=== PATIENT | female | born 1950 | race Caucasian/White ===

== ENCOUNTER 2019-10-16 12:59 | Emergency (ER) | payer SELFPAY ==
[2019-10-16] MEDS ORDERED: ULTRAM50 MG PO (18:10)
== END 2019-10-16 13:25 | disposition left against medical advice (07) ==
LOC: FSED 12:59
DX: M79.604 Pain in right leg (principal)

== ENCOUNTER 2019-10-16 14:12 | Emergency (ER) | payer OTHER ==
[~2019-10-16] VITALS: Ht 170.2 cm; Wt 86.2 kg
--- NOTE | 2019-10-16 16:13 | Emergency Department Note ---
History of Present Illnes History of Present Illness Chief Complaint: General Medicine Complaints History of Present Illness This is a 68 year old female arrived to the ED with complaints of right hip pain after mechanical fall just prior to arrival.. Chief Complaint Comment STATES SHE HAD MECHANICAL TRIP AND FALL OVER A STAND AT A [employer] THIS PAST SAT FELL DIRECTLY ON RIGHT HIP DENIES HITTING HEAD DENIES LOC STATES SHE HAD RIGHT HIP REPLACEMENT ABOUT 15 YR AGO UNABLE TO WALK SINCE SAT NORMALLY WALKS WITHOUT ASSISTANCE Historian: Patient Arrival Mode: Car Onset (how long ago): hour(s) Radiation: Reports non-radiation Severity: moderate Onset quality: sudden Duration (how long): hour(s) Timing of current episode: constant Progression: unchanged Context: Reports trauma/injury Relieving factors: none, immobilization Exacerbating factors: movement Associated symptoms: Reports denies other symptoms Treatments prior to arrival: none Past Medical/Family History Physician Review I have reviewed the patient's past medical and family history. Any updates have been documented here. Past Medical History Recent Fever: No Clinical Suspicion of Infectio: No New/Unexplained Change in Ment: No Past Medical History: Hypertension, Diabetes, A-Fib, Hyperlipedemia Other Medical History: DEMENTIA RESTLESS LEG SYNDROME KIDNEY INFECTION INSOMNIA Past Surgical History: Appendectomy, , Hip Replacement Other Surgery: TRIPLE BYPASS LEFT LEG SURGERY RIGHT ARM SURGERY Social History Smoking Cessation: Former smoker Alcohol Use: None Any Illegal Drug Use: No TB Exposure/Symptoms: No Physically hurt or threatened: No Other Last Tetanus: UTD Any Pre-Existing Lines (PICC,: No Is patient up to date on immun: Yes Last Flu: UTD Last Pneumovax: UTD Review of Systems Review of Systems Constitutional: Reports no symptoms EENTM: Reports no symptoms Cardiovascular: Reports no symptoms Respiratory: Reports no symptoms Gastrointestinal: Reports no symptoms Genitourinary: Reports no symptoms Musculoskeletal: Reports as per HPI, Reports back pain, Reports joint pain Integumentary: Reports no symptoms Neurological: Reports no symptoms Psychological: Reports no symptoms Endocrine: Reports no symptoms Hematological/Lymphatic: Reports no symptoms Physical Exam Related Data Allergies: Uncoded Allergies: NOVACAINE (Allergy, Unknown, 10/16/19) Triage Vital Signs Vital Signs Date Time Temp Pulse Resp B/P (MAP) Pulse Ox O2 Delivery O2 Flow Rate FiO2 10/16/19 14:24 99.0 75 18 138/71 96 Vital signs reviewed: Yes Physical Exam CONSTITUTIONAL Constitutional: Present well-developed, Present well-nourished HENT HENT: Present normocephalic, Present atraumatic, Present oropharynx clear/moist, Present nose normal HENT L/R: Present left ext ear normal, Present right ext ear normal EYES Eyes: Reports PERRL, Reports conjunctivae normal NECK Neck: Present ROM normal PULMONARY Pulmonary: Present effort normal, Present breath sounds normal CARDIOVASCULAR Cardiovascular: Present regular rhythm, Present heart sounds normal, Present capillary refill normal, Present normal rate GASTROINTESTINAL Abdominal: Present soft, Present nontender, Present bowel sounds normal GENITOURINARY Genitourinary: Present exam deferred SKIN Skin: Present warm, Present dry MUSCULOSKELETAL Musculoskeletal: Present tenderness (tenderness and hematoma noted over right hip) NEUROLOGICAL Neurological: Present alert, Present oriented x 3, Present no gross motor or sensory deficits PSYCHOLOGICAL Psychological: Present mood/affect normal, Present judgement normal Results Imaging Imaging results reviewed: Yes Impressions IMPRESSION: No acute radiographic abnormality identified within the pelvis or right hip. Post surgical changes from right hip arthroplasty. Degenerative changes as above. Signed by: Dr. Jaiden Ramirez MD on 10/16/2019 5:00 PM IMPRESSION: 1. Markedly limited exam due to beam hardening artifact from right hip prosthesis. 2. No acute, displaced fracture or dislocation, within the limitations of the study. Visualized portions of the heart were are intact, without evidence of loosening or failure. The proximal portion of the prosthesis is well aligned in the acetabulum. 3. 5.4 cm ill-defined hypodense structure involving the lateral aspect of the gluteus medius muscle may represent an evolving hematoma or contusion. There is associated subcutaneous soft tissue stranding, also likely posttraumatic. Signed by: Dr. Ton Villalobos M.D. on 10/16/2019 5:05 PM Dictated By: TON VILLALOBOS MD 04 Transcribed By: SUSAN on 10/16/191704 Assessment & Plan Medical Decision Making MDM 68-year-old female arrived to the ED with right hip pain after mechanical fall. Contusion noted on exam, patient individually with pain. Patient's hip and CT findings reviewed showed no acute fracture, prosthesis in place. Patient her vascular intact stable for discharge. Assessment & Plan Final Impression: (1) Hip pain Depart Disposition: HOME, SELF-CARE Last Vital Signs Date Time Temp Pulse Resp B/P (MAP) Pulse Ox O2 Delivery O2 Flow Rate FiO2 10/16/19 14:24 99.0 75 18 138/71 96 Home Meds Active Scripts Tramadol Hcl (ULTRAM) 50 Mg Tablet, 50 MG PO Q6HR PRN for Mild Pain (1-3) or Fever>100.8, #14 TAB Prov:OTONIEL SEARS DO 10/16/19 OTONIEL SEARS DO Oct 16, 2019 16:13
--- NOTE | 2019-10-16 17:04 | Diagnostic Imaging Report ---
EXAM: HIP RIGHT 2-3 VW (+/- PELVIS) DATE: 10/16/2019 3:31 PM INDICATION: Fall, pain COMPARISON: None FINDINGS: There are postsurgical changes from prior total right hip arthroplasty. Hardware appears intact and in anatomic alignment. There is no evidence for acute fracture or dislocation. Degenerative changes noted of the lumbosacral spine. There are degenerative changes of the left hip with moderate joint space narrowing. Calcifications noted within the pelvis which may represent calcified fibroids. Vascular calcifications noted within the right thigh. The surrounding soft tissues are otherwise unremarkable. IMPRESSION: No acute radiographic abnormality identified within the pelvis or right hip. Post surgical changes from right hip arthroplasty. Degenerative changes as above. Signed by: Dr. Jaiden Ramirez MD on 10/16/2019 5:00 PM
--- NOTE | 2019-10-16 17:08 | Diagnostic Imaging Report ---
EXAMINATION: CT of right hip, without contrast. TECHNIQUE: Axial spiral CT images of the right hip were performed from the iliac crest to the mid femur. No intravenous contrast was administered. Coronal and sagittal reformatted images in bone and soft tissue windows were obtained. CLINICAL HISTORY: Status post fall 2 days ago, right hip pain for 2 days COMPARISON: None. FINDINGS: Evaluation of the bones is markedly limited by beam hardening artifact from right hip prosthesis. Status post right total hip replacement, with right hip prosthesis showing satisfactory alignment in the acetabulum. Visualized hardware shows no evidence of loosening or failure. No definite acute, displaced fracture or dislocation within the limitations of the study. Deformity of the right superior pubic ramus likely reflects healed fracture. Atherosclerotic calcification of the iliac vessels. Gluteal region injection calcified granulomas. Ill-defined 5.4 x 4.0 cm hypodense structure involving the lateral aspect of the gluteus medius muscle (series 3, image 8), may represent an evolving hematoma or contusion. Subcutaneous soft tissue stranding lateral to the right iliac bone (series 3, image 4). IMPRESSION: 1. Markedly limited exam due to beam hardening artifact from right hip prosthesis. 2. No acute, displaced fracture or dislocation, within the limitations of the study. Visualized portions of the heart were are intact, without evidence of loosening or failure. The proximal portion of the prosthesis is well aligned in the acetabulum. 3. 5.4 cm ill-defined hypodense structure involving the lateral aspect of the gluteus medius muscle may represent an evolving hematoma or contusion. There is associated subcutaneous soft tissue stranding, also likely posttraumatic. Signed by: Dr. Marcos Elaine M.D. on 10/16/2019 5:05 PM
[2019-10-16] MEDS ORDERED: ULTRAM50 MG PO (18:10)
[2019-10-16 18:30] VITALS: BP 183/87
[2019-10-16] MEDS ORDERED: NAPROXEN 250 MG TAB PO ONE (18:30)
[2019-10-16] MEDS ORDERED: NAPROXEN 250 MG TAB ONE (18:37)
== END 2019-10-16 18:33 | disposition home or self-care (01) ==
LOC: ER 14:12
DX: M25.551 Pain in right hip (principal); W01.0XXA Fall on same level from slipping, tripping and stumbling without subsequent striking against object, initial encounter; Y92.511 Restaurant or cafe as the place of occurrence of the external cause; F03.90 Unspecified dementia, unspecified severity, without behavioral disturbance, psychotic disturbance, mood disturbance, and anxiety; I10 Essential (primary) hypertension; E11.9 Type 2 diabetes mellitus without complications; E78.5 Hyperlipidemia, unspecified; I48.91 Unspecified atrial fibrillation; Z95.1 Presence of aortocoronary bypass graft; Z96.641 Presence of right artificial hip joint
CPT/HCPCS: 99283

== ENCOUNTER 2020-02-13 18:00 | Inpatient (IN) | payer MEDICARE, OTHER ==
[~2020-02-13] VITALS: Ht 170.2 cm; Wt 94.4 kg
[~2020-02-13 18:00] MED LIST: ULTRAM50 MG PO
[2020-02-13] MEDS ORDERED: PIPERACILLIN/TAZO 4.5 GM 100 ML IV STA (19:41)
[2020-02-13] MEDS ORDERED: MORPHINE SULFATE INJ 4 MG/ML INJ 1ML IV PRN (19:45)
[2020-02-13] MEDS ORDERED: ACETAMINOPHEN 325 MG TAB PO ONE (19:45)
[2020-02-13] MEDS ORDERED: ONDANSETRON HCL INJ 2MG/ML 2ML 2 MG/ML VIAL IV PRN (19:45)
[2020-02-13 20:22] LABS: BASOPHILS # (AUTO) 0.1 (0.0-0.1); BASOPHILS % 0.3 % (0.0-1.0); HEMATOCRIT 37.1 % (34.2-44.1); HEMOGLOBIN 12.4 g/dL (12.0-16.0); LYMPHOCYTES # (AUTO) 2.6 (1.0-3.2); LYMPHOCYTES % 12.3 % (18.0-39.1); MEAN CORPUSCULAR HEMOGLOBIN 31.2 pg (28-32); MEAN CORPUSCULAR HGB CONC 33.4 g/dL (31-35); MEAN CORPUSCULAR VOLUME 93.5 fL (81-99); MONOCYTES # (AUTO) 1.5 (0.2-0.8); MONOCYTES % 7.1 % (4.4-11.3); NEUTROPHILS # (AUTO) 16.7 (2.1-6.9); NEUTROPHILS % 78.9 % (38.7-80.0); PLATELET COUNT 335 x10e3/uL (140-360); RED BLOOD COUNT 3.97 x10e6/uL (3.6-5.1); RED CELL DISTRIBUTION WIDTH 14.4 % (11.7-14.4)
[2020-02-13 20:43] LABS: ALBUMIN 4.1 g/dL (3.5-5.0); ANION GAP 22.7 mmol/L (8-16); CALCIUM 11.2 mg/dL (8.4-10.2); CREATININE, SERUM 4.17 mg/dL (0.57-1.11); POTASSIUM 3.7 mmol/L (3.5-5.1)
[2020-02-13] MEDS: SODIUM CHLORIDE 0.9% 1000ML 1,000 ML IV SCH (20:44)
[2020-02-13] MEDS ORDERED: SODIUM CHLORIDE 0.9% 1000ML 1,000 ML IV SCH (20:45)
[2020-02-13] MEDS ORDERED: SODIUM CHLORIDE 0.9% 50ML 50 ML ONE (22:08)
[2020-02-13] MEDS ORDERED: IOPAMIDOL 370 MG/ML 200 ML INFUS..BTL INJ ONE (22:09)
[2020-02-13 23:16] LABS: BILIRUBIN,URINE NEGATIVE (NEGATIVE); CLARITY,URINE CLEAR (CLEAR); COLOR,URINE YELLOW (YELLOW); KETONES,URINE NEGATIVE (NEGATIVE); LEUKOCYTE ESTERASE ,URINE NEGATIVE (NEGATIVE); NITRITE,URINE NEGATIVE (NEGATIVE); PROTEIN,URINE DIPSTICK >=300 (NEGATIVE); URINE UROBILINOGEN 0.2 mg/dL (0.2 - 1)
[2020-02-13 23:27] LABS: BACTERIA,URINE FEW /HPF; EPITHELIAL CELLS,URINE FEW /LPF; RBC,URINE 0-5 /HPF (0-5); WBC,URINE (MAN) 0-5 /HPF (0-5)
[2020-02-13] MEDS ORDERED: SODIUM CHLORIDE 0.9% 500ML 500 ML IV STA (23:47)
[2020-02-14] VITALS (8 sets, daily range): BP systolic 128–181; BP diastolic 55–66
[2020-02-14] MEDS: PIPER-TAZ 3.375 GM 50 ML IV SCH ×2 (00:10→09:54)
[2020-02-14] MEDS ORDERED: MORPHINE SULFATE INJ 4 MG/ML INJ 1ML IV PRN (02:45)
[2020-02-14] MEDS: SODIUM CHLORIDE 0.9% 1000ML 1,000 ML IV SCH (05:10)
[2020-02-14] MEDS ORDERED: POLYETHYLENE GLYCOL 3350 17 GM PACK PO PRN ×2 (08:30→19:45)
[2020-02-14] MEDS ORDERED: ACETAMINOPHEN 325 MG TAB PO PRN (08:30)
[2020-02-14] MEDS ORDERED: DEXTROSE 50% SYRINGE 50 ML IV PRN ×2 (08:30→19:45)
[2020-02-14] MEDS ORDERED: DOCUSATE SODIUM 100 MG CAP PO PRN (08:30)
[2020-02-14] MEDS ORDERED: HYDRALAZINE HCL 20 MG/ML VIAL IV PRN (08:30)
[2020-02-14] MEDS ORDERED: GUAIFENESIN/CODEINE 10 ML CUP PO PRN (08:30)
[2020-02-14] MEDS ORDERED: BENZONATATE 100 MG CAP PO PRN (08:30)
[2020-02-14] MEDS ORDERED: MELATONIN 5 MG TABLET PO PRN (08:30)
[2020-02-14] MEDS ORDERED: NIFEDIPINE CR 30 MG TAB PO SCH (09:00)
[2020-02-14] MEDS ORDERED: VANCOMYCIN 1GM/NS 250 ML 250 ML IV ONE (09:30)
[2020-02-14 10:57] LABS: BASOPHILS # (AUTO) 0.1 (0.0-0.1); BASOPHILS % 0.3 % (0.0-1.0); EOSINOPHILS # (AUTO) 0.1 (0.0-0.4); EOSINOPHILS % 0.4 % (0.0-6.0); HEMATOCRIT 30.4 % (34.2-44.1); HEMOGLOBIN 9.8 g/dL (12.0-16.0); LYMPHOCYTES # (AUTO) 3.4 (1.0-3.2); LYMPHOCYTES % 16.4 % (18.0-39.1); MEAN CORPUSCULAR HEMOGLOBIN 31.7 pg (28-32); MEAN CORPUSCULAR HGB CONC 32.2 g/dL (31-35); MEAN CORPUSCULAR VOLUME 98.4 fL (81-99); MONOCYTES # (AUTO) 2.2 (0.2-0.8); MONOCYTES % 10.6 % (4.4-11.3); NEUTROPHILS # (AUTO) 14.7 (2.1-6.9); NEUTROPHILS % 71.5 % (38.7-80.0); PLATELET COUNT 304 x10e3/uL (140-360); RED BLOOD COUNT 3.09 x10e6/uL (3.6-5.1); RED CELL DISTRIBUTION WIDTH 14.6 % (11.7-14.4)
[2020-02-14 11:18] LABS: ALBUMIN/GLOBULIN RATIO 1.1 (0.8-2.0); ANION GAP 13.7 mmol/L (8-16); CALCIUM 8.6 mg/dL (8.4-10.2); CREATININE, SERUM 3.8 mg/dL (0.57-1.11); POTASSIUM 3.7 mmol/L (3.5-5.1)
[2020-02-14] MEDS: SEVELAMER CARBONATE 800 MG TAB PO SCH ×2 (12:00→17:46)
[2020-02-14 12:52] LABS: ANISOCYTOSIS SLIGHT; LYMPHOCYTES % (MANUAL) 10 % (19-48); MONOCYTES % (MANUAL) 7 % (3.4-9.0); NEUTROPHILS % (MANUAL) 83 % (40-74); PLATELET ESTIMATE ADEQUATE; RBC MORPHOLOGY COMMENT NORMAL
[2020-02-14 12:53] LABS: PLATELET MORPHOLOGY COMMENT RARE EDTA CLUMPING
[2020-02-14] MEDS ORDERED: GENTAMICIN 120MG/NS 100ML 100 ML IV ONE (15:15)
[2020-02-14] MEDS ORDERED: LACTULOSE SYRUP 20 GM/30 ML UDC PO ONE (15:30)
[2020-02-14] MEDS ORDERED: ASPIRIN81 MG PO (18:30)
[2020-02-14] MEDS ORDERED: PROCARDIA XL30 MG PO (18:30)
[2020-02-14] MEDS ORDERED: CLEOCIN HCL150 MG PO (18:30)
[2020-02-14] MEDS ORDERED: HUMALOG100 UNIT/1 (18:30)
[2020-02-14] MEDS ORDERED: LACTULOSE20 GM/30 M PO (18:30)
[2020-02-14] MEDS ORDERED: LASIX40 MG PO (18:30)
[2020-02-14] MEDS ORDERED: ROZEREM8 MG PO (18:30)
[2020-02-14] MEDS ORDERED: ATORVASTATIN CA10 MG PO (18:30)
[2020-02-14] MEDS ORDERED: LEXAPRO20 MG PO (18:30)
[2020-02-14] MEDS ORDERED: ROPINIROLE HCL1 MG PO (18:30)
[2020-02-14] MEDS ORDERED: MIRALAX17 GM PO (18:30)
[2020-02-14] MEDS ORDERED: ZOFRAN4 MG PO (18:30)
[2020-02-14] MEDS ORDERED: COLACE100 MG PO (18:30)
[2020-02-14] MEDS ORDERED: GUANFACINE HCL2 MG PO (18:30)
[2020-02-14] MEDS ORDERED: LANTUS 3ML100 UNITS/ SC (18:30)
[2020-02-14] MEDS ORDERED: NAMENDA5 MG PO (18:30)
[2020-02-14] MEDS ORDERED: HYDRALAZINE HCL25 MG PO (18:30)
[2020-02-14] MEDS ORDERED: ROBAXIN-750750 MG PO (18:30)
[2020-02-14] MEDS ORDERED: AMIODARONE HCL200 MG PO (18:30)
[2020-02-14] MEDS ORDERED: LACTULOSE SYRUP 20 GM/30 ML UDC PO PRN (19:45)
[2020-02-14] MEDS ORDERED: ONDANSETRON HCL 4 MG ORAL DISINTEGRATING TAB PO PRN (19:45)
[2020-02-14] MEDS ORDERED: METHOCARBAMOL 750 MG TAB PO PRN (19:45)
[2020-02-14] MEDS ORDERED: ZOLPIDEM TARTRATE 5 MG TAB PO PRN (19:45)
[2020-02-14] MEDS: GUANFACINE HCL 1 MG TAB PO SCH (20:00)
[2020-02-14] MEDS: HYDRALAZINE HCL 25 MG TAB PO SCH (22:00)
[2020-02-14] MEDS: ATORVASTATIN 10 MG TAB PO SCH (23:07)
[2020-02-14] MEDS: MEMANTINE 10 MG TAB PO SCH (23:08)
[2020-02-14] MEDS: ROPINIROLE HCL 1 MG TAB PO SCH (23:08)
[2020-02-14] MEDS: INSULIN LISPRO 100 UNIT/1 ML 3ML VIAL SQ SCH (23:21)
[2020-02-14] MEDS: INSULIN GLARGINE 100 UNITS/ML VIAL SC SCH (23:21)
[2020-02-15] VITALS (11 sets, daily range): BP systolic 107–198; BP diastolic 40–68
[2020-02-15] MEDS: ONDANSETRON HCL INJ 2MG/ML 2ML 2 MG/ML VIAL IV PRN ×3 (03:07→20:23)
[2020-02-15] MEDS: MORPHINE SULFATE 2 MG/ML SYR 1ML IV PRN ×2 (03:46→11:30)
[2020-02-15] MEDS: HYDRALAZINE HCL 25 MG TAB PO SCH ×3 (05:40→21:56)
[2020-02-15] MEDS: HYDROCODONE/APAP 5MG-325MG TAB PO PRN ×3 (05:46→20:23)
[2020-02-15 06:29] LABS: BASOPHILS # (AUTO) 0.1 (0.0-0.1); BASOPHILS % 0.6 % (0.0-1.0); EOSINOPHILS # (AUTO) 0.3 (0.0-0.4); EOSINOPHILS % 1.7 % (0.0-6.0); HEMATOCRIT 32.1 % (34.2-44.1); HEMOGLOBIN 10.5 g/dL (12.0-16.0); LYMPHOCYTES # (AUTO) 2.6 (1.0-3.2); LYMPHOCYTES % 13.6 % (18.0-39.1); MEAN CORPUSCULAR HEMOGLOBIN 31.9 pg (28-32); MEAN CORPUSCULAR HGB CONC 32.7 g/dL (31-35); MEAN CORPUSCULAR VOLUME 97.6 fL (81-99); MONOCYTES # (AUTO) 1.4 (0.2-0.8); MONOCYTES % 7.2 % (4.4-11.3); NEUTROPHILS # (AUTO) 14.5 (2.1-6.9); NEUTROPHILS % 76.2 % (38.7-80.0); PLATELET COUNT 311 x10e3/uL (140-360); RED BLOOD COUNT 3.29 x10e6/uL (3.6-5.1); RED CELL DISTRIBUTION WIDTH 14.3 % (11.7-14.4)
[2020-02-15 07:05] LABS: ALBUMIN 3.2 g/dL (3.5-5.0); ALBUMIN/GLOBULIN RATIO 1.1 (0.8-2.0); ANION GAP 18.2 mmol/L (8-16); CALCIUM 8.5 mg/dL (8.4-10.2); CREATININE, SERUM 3.73 mg/dL (0.57-1.11); POTASSIUM 3.2 mmol/L (3.5-5.1)
[2020-02-15 07:21] LABS: MAGNESIUM 1.9 MG/DL (1.3-2.1); PHOSPHORUS 3.1 MG/DL (2.3-4.7)
[2020-02-15] MEDS: INSULIN LISPRO 100 UNIT/1 ML 3ML VIAL SQ SCH ×4 (07:30→22:02)
[2020-02-15] MEDS: SEVELAMER CARBONATE 800 MG TAB PO SCH ×3 (08:00→17:38)
[2020-02-15] MEDS: GUANFACINE HCL 1 MG TAB PO SCH (08:00)
[2020-02-15 08:05] LABS: FERRITIN 666.77 ng/mL (4.63-204.00)
[2020-02-15] MEDS: AMIODARONE HCL 200 MG TAB PO SCH (08:25)
[2020-02-15] MEDS: PANTOPRAZOLE SOD 40 MG TABEC PO SCH (08:25)
[2020-02-15] MEDS: ESCITALOPRAM OXALATE 10 MG TAB PO SCH (08:26)
[2020-02-15] MEDS: MEMANTINE 10 MG TAB PO SCH ×2 (08:26→21:55)
[2020-02-15] MEDS: NIFEDIPINE CR 30 MG TAB PO SCH (08:27)
[2020-02-15] MEDS ORDERED: FUROSEMIDE 40 MG TAB PO SCH (09:00)
[2020-02-15] MEDS ORDERED: LIDOCAINE HCL 1% LOCAL INJ 20 ML VIAL ONE (09:05)
[2020-02-15] MEDS: ASPIRIN 81 MG CHEW TAB PO SCH (11:25)
[2020-02-15] MEDS: PIPER-TAZ 3.375 GM 50 ML IV SCH (11:25)
[2020-02-15] MEDS: DOCUSATE SODIUM 100 MG CAP PO SCH (11:25)
[2020-02-15] MEDS: HEPARIN SOD (PORCINE) 5,000 UNIT/ML VIAL SC SCH ×2 (11:25→22:01)
[2020-02-15] MEDS ORDERED: POTASSIUM CHLORIDE 10MEQ EA PO ONE (12:00)
[2020-02-15] MEDS: CLONIDINE HCL 0.1 MG TAB PO SCH ×2 (12:06→16:20)
[2020-02-15] MEDS ORDERED: ENALAPRILAT IV INJ 1.25 MG/ML VIAL IV PRN (13:15)
[2020-02-15] MEDS ORDERED: CEFEPIME HCL 1 GM VIAL IV SCH (17:45)
[2020-02-15] MEDS: CEFEPIME 1GM/NS 0.9% 50 ML 50 ML IV SCH (17:58)
[2020-02-15] MEDS: METRONIDAZOLE 500MG/NS 100ML 100 ML IV SCH (19:44)
[2020-02-15] MEDS: ATORVASTATIN 10 MG TAB PO SCH (21:55)
[2020-02-15] MEDS: ROPINIROLE HCL 1 MG TAB PO SCH (21:56)
[2020-02-15] MEDS: INSULIN GLARGINE 100 UNITS/ML VIAL SC SCH (22:01)
[2020-02-16] VITALS (12 sets, daily range): BP systolic 100–210; BP diastolic 43–63
[2020-02-16] MEDS: METRONIDAZOLE 500MG/NS 100ML 100 ML IV SCH ×3 (04:54→21:12)
[2020-02-16] MEDS: HYDRALAZINE HCL 25 MG TAB PO SCH ×3 (06:25→21:19)
[2020-02-16 06:32] LABS: BASOPHILS # (AUTO) 0.1 (0.0-0.1); BASOPHILS % 0.7 % (0.0-1.0); EOSINOPHILS # (AUTO) 0.6 (0.0-0.4); EOSINOPHILS % 4.4 % (0.0-6.0); HEMATOCRIT 28.8 % (34.2-44.1); HEMOGLOBIN 9.2 g/dL (12.0-16.0); LYMPHOCYTES # (AUTO) 3.2 (1.0-3.2); LYMPHOCYTES % 25.6 % (18.0-39.1); MEAN CORPUSCULAR HEMOGLOBIN 32.3 pg (28-32); MEAN CORPUSCULAR HGB CONC 31.9 g/dL (31-35); MEAN CORPUSCULAR VOLUME 101.1 fL (81-99); MONOCYTES # (AUTO) 1.5 (0.2-0.8); MONOCYTES % 12.1 % (4.4-11.3); NEUTROPHILS # (AUTO) 7.1 (2.1-6.9); NEUTROPHILS % 56.6 % (38.7-80.0); PLATELET COUNT 274 x10e3/uL (140-360); RED BLOOD COUNT 2.85 x10e6/uL (3.6-5.1); RED CELL DISTRIBUTION WIDTH 14.5 % (11.7-14.4)
[2020-02-16 06:51] LABS: ALBUMIN 2.8 g/dL (3.5-5.0); ALBUMIN/GLOBULIN RATIO 1.1 (0.8-2.0); ANION GAP 12.5 mmol/L (8-16); CALCIUM 8.5 mg/dL (8.4-10.2); CREATININE, SERUM 4.84 mg/dL (0.57-1.11); POTASSIUM 3.5 mmol/L (3.5-5.1)
[2020-02-16] MEDS: PANTOPRAZOLE SOD 40 MG TABEC PO SCH (08:30)
[2020-02-16] MEDS: INSULIN LISPRO 100 UNIT/1 ML 3ML VIAL SQ SCH ×4 (08:30→21:17)
[2020-02-16] MEDS: SEVELAMER CARBONATE 800 MG TAB PO SCH ×4 (08:50→17:00)
[2020-02-16] MEDS: MEMANTINE 10 MG TAB PO SCH ×2 (08:50→21:12)
[2020-02-16] MEDS: AMIODARONE HCL 200 MG TAB PO SCH (08:50)
[2020-02-16] MEDS: ASPIRIN 81 MG CHEW TAB PO SCH (08:50)
[2020-02-16] MEDS: DOCUSATE SODIUM 100 MG CAP PO SCH (08:50)
[2020-02-16] MEDS: ESCITALOPRAM OXALATE 10 MG TAB PO SCH (08:50)
[2020-02-16] MEDS: CLONIDINE HCL 0.1 MG TAB PO SCH (08:51)
[2020-02-16] MEDS: HEPARIN SOD (PORCINE) 5,000 UNIT/ML VIAL SC SCH ×2 (09:00→21:16)
[2020-02-16] MEDS: HYDROCODONE/APAP 5MG-325MG TAB PO PRN ×2 (09:19→22:32)
[2020-02-16] MEDS: NIFEDIPINE CR 30 MG TAB PO SCH ×2 (10:00→16:47)
[2020-02-16] MEDS ORDERED: CLONIDINE HCL 0.1 MG TAB PO PRN (10:45)
[2020-02-16] MEDS ORDERED: MIDAZOLAM HCL 2 MG/2 ML VIAL ONE (12:41)
[2020-02-16] MEDS ORDERED: KETAMINE HCL INJ 50 MG/ML 10 ML VIAL ONE (12:41)
[2020-02-16] MEDS: ONDANSETRON HCL INJ 2MG/ML 2ML 2 MG/ML VIAL IV PRN (12:50)
[2020-02-16] MEDS: MORPHINE SULFATE INJ 4 MG/ML INJ 1ML IV PRN (12:50)
[2020-02-16] MEDS ORDERED: ENALAPRILAT IV INJ 1.25 MG/ML VIAL IV PRN ×2 (15:00→15:45)
[2020-02-16] MEDS: CEFEPIME 1GM/NS 0.9% 50 ML 50 ML IV SCH (18:15)
[2020-02-16] MEDS: ROPINIROLE HCL 1 MG TAB PO SCH (21:12)
[2020-02-16] MEDS: ATORVASTATIN 10 MG TAB PO SCH (21:12)
[2020-02-16] MEDS: INSULIN GLARGINE 100 UNITS/ML VIAL SC SCH (21:16)
[2020-02-17] VITALS (8 sets, daily range): BP systolic 149–172; BP diastolic 47–64
[2020-02-17] MEDS: METRONIDAZOLE 500MG/NS 100ML 100 ML IV SCH ×3 (04:17→20:00)
[2020-02-17 04:31] LABS: BASOPHILS # (AUTO) 0.1 (0.0-0.1); BASOPHILS % 0.6 % (0.0-1.0); EOSINOPHILS # (AUTO) 0.4 (0.0-0.4); EOSINOPHILS % 2.8 % (0.0-6.0); HEMATOCRIT 30.3 % (34.2-44.1); HEMOGLOBIN 9.8 g/dL (12.0-16.0); LYMPHOCYTES # (AUTO) 2.9 (1.0-3.2); LYMPHOCYTES % 22.5 % (18.0-39.1); MEAN CORPUSCULAR HEMOGLOBIN 31.2 pg (28-32); MEAN CORPUSCULAR HGB CONC 32.3 g/dL (31-35); MEAN CORPUSCULAR VOLUME 96.5 fL (81-99); MONOCYTES # (AUTO) 1.3 (0.2-0.8); MONOCYTES % 10.5 % (4.4-11.3); PLATELET COUNT 273 x10e3/uL (140-360); RED BLOOD COUNT 3.14 x10e6/uL (3.6-5.1); RED CELL DISTRIBUTION WIDTH 13.9 % (11.7-14.4)
[2020-02-17 04:48] LABS: ALBUMIN 2.8 g/dL (3.5-5.0); ANION GAP 14.4 mmol/L (8-16); CREATININE, SERUM 4.61 mg/dL (0.57-1.11); POTASSIUM 3.4 mmol/L (3.5-5.1)
[2020-02-17] MEDS: HYDRALAZINE HCL 25 MG TAB PO SCH ×3 (05:05→20:44)
[2020-02-17] MEDS: INSULIN LISPRO 100 UNIT/1 ML 3ML VIAL SQ SCH ×4 (07:30→20:31)
[2020-02-17] MEDS: PANTOPRAZOLE SOD 40 MG TABEC PO SCH (07:30)
[2020-02-17] MEDS: SEVELAMER CARBONATE 800 MG TAB PO SCH ×3 (08:00→17:39)
[2020-02-17] MEDS: HEPARIN SOD (PORCINE) 5,000 UNIT/ML VIAL SC SCH ×2 (12:10→20:35)
[2020-02-17] MEDS: NIFEDIPINE CR 30 MG TAB PO SCH ×2 (12:10→17:39)
[2020-02-17] MEDS: ASPIRIN 81 MG CHEW TAB PO SCH (12:43)
[2020-02-17] MEDS: DOCUSATE SODIUM 100 MG CAP PO SCH (12:43)
[2020-02-17] MEDS: AMIODARONE HCL 200 MG TAB PO SCH (12:43)
[2020-02-17] MEDS: MEMANTINE 10 MG TAB PO SCH ×2 (12:43→20:34)
[2020-02-17] MEDS: ESCITALOPRAM OXALATE 10 MG TAB PO SCH (12:43)
[2020-02-17] MEDS ORDERED: METHOCARBAMOL 500 MG TAB PO PRN (13:45)
[2020-02-17] MEDS ORDERED: POTASSIUM CHLORIDE 20 MEQ TAB CR PO ONE (14:38)
[2020-02-17 16:38] LABS: BODY FLUID APPEARANCE CLEAR; BODY FLUID COLOR COLORLESS; BODY FLUID TYPE PERITONEAL; WBC,BODY FLUID 0 cells/uL
[2020-02-17 16:39] LABS: RBC,BODY FLUID 11 cells/uL
[2020-02-17 18:09] LABS: LYMPHOCYTES,BODY FLUID 0 %; MONO/MACROPHG,BODY FLUID 0 %; NEUTROPHILS,BODY FLUID 0 %
[2020-02-17] MEDS: CEFEPIME 1GM/NS 0.9% 50 ML 50 ML IV SCH (18:12)
[2020-02-17] MEDS: INSULIN GLARGINE 100 UNITS/ML VIAL SQ SCH (20:32)
[2020-02-17] MEDS: ATORVASTATIN 10 MG TAB PO SCH (20:34)
[2020-02-17] MEDS: ROPINIROLE HCL 1 MG TAB PO SCH (20:44)
[2020-02-18] VITALS (8 sets, daily range): BP systolic 129–169; BP diastolic 51–79
[2020-02-18] MEDS: ONDANSETRON HCL INJ 2MG/ML 2ML 2 MG/ML VIAL IV PRN (00:55)
[2020-02-18] MEDS: METRONIDAZOLE 500MG/NS 100ML 100 ML IV SCH ×3 (03:34→20:18)
[2020-02-18] MEDS: MORPHINE SULFATE INJ 4 MG/ML INJ 1ML IV PRN ×2 (04:45→22:10)
[2020-02-18] MEDS: HYDRALAZINE HCL 25 MG TAB PO SCH ×3 (06:00→22:00)
[2020-02-18] MEDS: PANTOPRAZOLE SOD 40 MG TABEC PO SCH (08:40)
[2020-02-18] MEDS: SEVELAMER CARBONATE 800 MG TAB PO SCH ×3 (08:41→17:30)
[2020-02-18] MEDS: AMIODARONE HCL 200 MG TAB PO SCH (08:42)
[2020-02-18] MEDS: DOCUSATE SODIUM 100 MG CAP PO SCH (08:42)
[2020-02-18] MEDS: ASPIRIN 81 MG CHEW TAB PO SCH (08:42)
[2020-02-18] MEDS: ESCITALOPRAM OXALATE 10 MG TAB PO SCH (08:52)
[2020-02-18] MEDS: MEMANTINE 10 MG TAB PO SCH ×2 (08:52→22:00)
[2020-02-18] MEDS: NIFEDIPINE CR 30 MG TAB PO SCH ×2 (08:55→17:30)
[2020-02-18] MEDS: INSULIN LISPRO 100 UNIT/1 ML 3ML VIAL SQ SCH ×4 (09:34→22:00)
[2020-02-18] MEDS: HEPARIN SOD (PORCINE) 5,000 UNIT/ML VIAL SC SCH ×2 (09:34→22:00)
[2020-02-18] MEDS: CEFEPIME 1GM/NS 0.9% 50 ML 50 ML IV SCH (17:30)
[2020-02-18] MEDS ORDERED: METOCLOPRAMIDE HCL 10 MG/2ML VIAL IV ONE (21:15)
[2020-02-18] MEDS ORDERED: DONNATAL/LIDOCAINE/MAALOX 30 ML SUSP PO ONE (21:15)
[2020-02-18] MEDS: ATORVASTATIN 10 MG TAB PO SCH (22:00)
[2020-02-18] MEDS: ROPINIROLE HCL 1 MG TAB PO SCH (22:00)
[2020-02-18] MEDS: PANTOPRAZOLE 40 MG 10ML VIAL IV SCH (22:00)
[2020-02-18] MEDS: INSULIN GLARGINE 100 UNITS/ML VIAL SQ SCH (22:00)
[2020-02-18] MEDS ORDERED: MAGNESIUM HYDROXIDE 30 ML UDC PO ONE (22:30)
[2020-02-19] VITALS (8 sets, daily range): BP systolic 125–158; BP diastolic 47–63
[2020-02-19] MEDS: METRONIDAZOLE 500MG/NS 100ML 100 ML IV SCH ×3 (04:09→20:45)
[2020-02-19 05:41] LABS: BASOPHILS # (AUTO) 0.1 (0.0-0.1); BASOPHILS % 0.7 % (0.0-1.0); EOSINOPHILS # (AUTO) 0.4 (0.0-0.4); EOSINOPHILS % 3.5 % (0.0-6.0); HEMATOCRIT 32.8 % (34.2-44.1); HEMOGLOBIN 10.8 g/dL (12.0-16.0); LYMPHOCYTES # (AUTO) 3.2 (1.0-3.2); MEAN CORPUSCULAR HEMOGLOBIN 31.8 pg (28-32); MEAN CORPUSCULAR HGB CONC 32.9 g/dL (31-35); MEAN CORPUSCULAR VOLUME 96.5 fL (81-99); MONOCYTES # (AUTO) 1.4 (0.2-0.8); MONOCYTES % 12.7 % (4.4-11.3); NEUTROPHILS # (AUTO) 6.2 (2.1-6.9); NEUTROPHILS % 54.4 % (38.7-80.0); PLATELET COUNT 289 x10e3/uL (140-360); RED CELL DISTRIBUTION WIDTH 13.9 % (11.7-14.4)
[2020-02-19] MEDS: HYDRALAZINE HCL 25 MG TAB PO SCH ×3 (05:43→21:20)
[2020-02-19] MEDS: METOCLOPRAMIDE HCL 10 MG/2ML VIAL IV SCH ×4 (05:49→17:16)
[2020-02-19 06:00] LABS: ALBUMIN 2.8 g/dL (3.5-5.0); ALBUMIN/GLOBULIN RATIO 0.9 (0.8-2.0); ANION GAP 13.4 mmol/L (8-16); CREATININE, SERUM 3.76 mg/dL (0.57-1.11); POTASSIUM 3.4 mmol/L (3.5-5.1)
[2020-02-19] MEDS: INSULIN LISPRO 100 UNIT/1 ML 3ML VIAL SQ SCH ×4 (08:05→21:18)
[2020-02-19] MEDS: AMIODARONE HCL 200 MG TAB PO SCH (08:44)
[2020-02-19] MEDS: ESCITALOPRAM OXALATE 10 MG TAB PO SCH (08:44)
[2020-02-19] MEDS: DOCUSATE SODIUM 100 MG CAP PO SCH (08:44)
[2020-02-19] MEDS: SEVELAMER CARBONATE 800 MG TAB PO SCH ×3 (08:44→17:13)
[2020-02-19] MEDS: ASPIRIN 81 MG CHEW TAB PO SCH (08:44)
[2020-02-19] MEDS: NIFEDIPINE CR 30 MG TAB PO SCH ×2 (08:45→17:13)
[2020-02-19] MEDS: PANTOPRAZOLE 40 MG 10ML VIAL IV SCH ×2 (08:45→21:19)
[2020-02-19] MEDS: MEMANTINE 10 MG TAB PO SCH ×2 (08:45→20:45)
[2020-02-19] MEDS: HEPARIN SOD (PORCINE) 5,000 UNIT/ML VIAL SC SCH ×2 (09:45→20:56)
[2020-02-19] MEDS ORDERED: LACTULOSE SYRUP 20 GM/30 ML UDC PO ONE (13:00)
[2020-02-19] MEDS ORDERED: POTASSIUM CHLORIDE 20 MEQ TAB CR PO ONE (13:00)
[2020-02-19] MEDS ORDERED: PROPOFOL IV EMULSION 10 MG/ML 20 ML VIAL ONE (13:02)
[2020-02-19] MEDS ORDERED: LIDOCAINE HCL 2% LOCAL INJ 5 ML SDV VIAL INJ ONE (13:02)
[2020-02-19] MEDS: CEFEPIME 1GM/NS 0.9% 50 ML 50 ML IV SCH (17:16)
[2020-02-19] MEDS: ATORVASTATIN 10 MG TAB PO SCH (20:45)
[2020-02-19] MEDS: ROPINIROLE HCL 1 MG TAB PO SCH (20:46)
[2020-02-19] MEDS: INSULIN GLARGINE 100 UNITS/ML VIAL SQ SCH (21:19)
[2020-02-20] VITALS: BP 153/43
[2020-02-20] MEDS: METOCLOPRAMIDE HCL 10 MG/2ML VIAL IV SCH ×3 (00:11→12:09)
[2020-02-20] MEDS: METRONIDAZOLE 500MG/NS 100ML 100 ML IV SCH ×2 (04:29→12:10)
[2020-02-20] MEDS: HYDRALAZINE HCL 25 MG TAB PO SCH (05:22)
[2020-02-20] MEDS: INSULIN LISPRO 100 UNIT/1 ML 3ML VIAL SQ SCH ×2 (08:27→11:46)
[2020-02-20] MEDS: AMIODARONE HCL 200 MG TAB PO SCH (08:27)
[2020-02-20] MEDS: NIFEDIPINE CR 30 MG TAB PO SCH (08:27)
[2020-02-20] MEDS: ASPIRIN 81 MG CHEW TAB PO SCH (08:27)
[2020-02-20] MEDS: ESCITALOPRAM OXALATE 10 MG TAB PO SCH (08:27)
[2020-02-20] MEDS: SEVELAMER CARBONATE 800 MG TAB PO SCH ×2 (08:27→12:09)
[2020-02-20] MEDS: DOCUSATE SODIUM 100 MG CAP PO SCH (08:27)
[2020-02-20] MEDS: MEMANTINE 10 MG TAB PO SCH (08:27)
[2020-02-20 08:32] VITALS: BP 184/62
[2020-02-20 08:47] VITALS: BP 184/62
[2020-02-20] MEDS: PANTOPRAZOLE 40 MG 10ML VIAL IV SCH (09:20)
[2020-02-20] MEDS: HEPARIN SOD (PORCINE) 5,000 UNIT/ML VIAL SC SCH (09:20)
[2020-02-20 11:41] VITALS: BP 164/73
[2020-02-20] MEDS ORDERED: NIFEDIPINE ER30 M1 PO (15:39)
[2020-02-20] MEDS ORDERED: PANTOPRAZOLE SO40 MG PO (15:40)
[2020-02-20 15:59] VITALS: BP 163/69
== END 2020-02-20 16:34 | disposition home or self-care (01) | DRG 919 ==
LOC: ER 20:15 → ERHOLD 02-14 02:30 → MED/SURG3 02-14 04:15 → OBSVTOIN 02-16 07:55
PROVIDERS: ADMIT Internal Medicine; ATTEND Internal Medicine
PROC: 3E1M39Z Irrigation of Peritoneal Cavity using Dialysate, Percutaneous Approach (ICD-10-PCS; 2020-02-14)
PROC: 02H633Z Insertion of Infusion Device into Right Atrium, Percutaneous Approach (ICD-10-PCS; 2020-02-15)
PROC: B548ZZA Ultrasonography of Superior Vena Cava, Guidance (ICD-10-PCS; 2020-02-15)
PROC: 3E1M39Z Irrigation of Peritoneal Cavity using Dialysate, Percutaneous Approach (ICD-10-PCS; 2020-02-15)
PROC: 3E1M39Z Irrigation of Peritoneal Cavity using Dialysate, Percutaneous Approach (ICD-10-PCS; 2020-02-16)
PROC: 3E1M39Z Irrigation of Peritoneal Cavity using Dialysate, Percutaneous Approach (ICD-10-PCS; 2020-02-17)
PROC: 0DB68ZX Excision of Stomach, Via Natural or Artificial Opening Endoscopic, Diagnostic (ICD-10-PCS; principal; 2020-02-17 11:00)
PROC: 3E1M39Z Irrigation of Peritoneal Cavity using Dialysate, Percutaneous Approach (ICD-10-PCS; 2020-02-18)
PROC: 3E1M39Z Irrigation of Peritoneal Cavity using Dialysate, Percutaneous Approach (ICD-10-PCS; 2020-02-19)
DX: T85.71XA Infection and inflammatory reaction due to peritoneal dialysis catheter, initial encounter (principal); A41.9 Sepsis, unspecified organism; N18.6 End stage renal disease; K65.9 Peritonitis, unspecified; I12.0 Hypertensive chronic kidney disease with stage 5 chronic kidney disease or end stage renal disease; K22.10 Ulcer of esophagus without bleeding; N17.9 Acute kidney failure, unspecified; N39.0 Urinary tract infection, site not specified; E11.22 Type 2 diabetes mellitus with diabetic chronic kidney disease; Z99.2 Dependence on renal dialysis; I48.91 Unspecified atrial fibrillation; F03.90 Unspecified dementia, unspecified severity, without behavioral disturbance, psychotic disturbance, mood disturbance, and anxiety; Z95.1 Presence of aortocoronary bypass graft; Z88.5 Allergy status to narcotic agent; K29.70 Gastritis, unspecified, without bleeding; K44.9 Diaphragmatic hernia without obstruction or gangrene; Z86.73 Personal history of transient ischemic attack (TIA), and cerebral infarction without residual deficits; Z96.642 Presence of left artificial hip joint; K80.20 Calculus of gallbladder without cholecystitis without obstruction; E66.9 Obesity, unspecified; Z11.59 Encounter for screening for other viral diseases; Z68.32 Body mass index [BMI] 32.0-32.9, adult; Z20.828 Contact with and (suspected) exposure to other viral communicable diseases; Z79.4 Long term (current) use of insulin; B95.8 Unspecified staphylococcus as the cause of diseases classified elsewhere
CPT/HCPCS: 36415; 36556; 43239; 71045; 74177; 74470; 76705; 76937; 77001; 78227; 80053; 81001; 82607; 82728; 82746; 82948; 83540; 83605; 83690; 83735; 84100; 84466; 85025; 85045; 87040; 87070; 87071; 87075; 87086; 87205; 88305; 88312; 89051; 93005; 96372; 99284; A9537; G0378; J0692; J1580; J1644; J1815; J2001; J2250; J2270; J2405; J2543; J2765; J3370; J7030; J7040; Q0162; Q9967; U0002

== ENCOUNTER → 2020-03-06 | Outpatient (CLI) | payer MEDICARE ==
[~2020-03-06] MED LIST changes: +AMIODARONE HCL200 MG PO; +ASPIRIN81 MG PO; +ATORVASTATIN CA10 MG PO; +CLEOCIN HCL150 MG PO; +COLACE100 MG PO; +GUANFACINE HCL2 MG PO; +HUMALOG100 UNIT/1; +HYDRALAZINE HCL25 MG PO; +LACTULOSE20 GM/30 M PO; +LANTUS 3ML100 UNITS/ SC; +LASIX40 MG PO; +LEXAPRO20 MG PO; +LIDOCAINE HCL 1% LOCAL INJ 20 ML VIAL ONE; +MIRALAX17 GM PO; +NAMENDA5 MG PO; +NIFEDIPINE ER30 M1 PO; +PANTOPRAZOLE SO40 MG PO; +PROCARDIA XL30 MG PO; +ROBAXIN-750750 MG PO; +ROPINIROLE HCL1 MG PO; +ROZEREM8 MG PO; +ZOFRAN4 MG PO
--- NOTE | 2020-03-06 12:06 | Diagnostic Imaging Report ---
EXAMINATION: CHEST SINGLE (PORTABLE) INDICATION: Line removal COMPARISON: Chest radiograph 02/14/2020, line placement 02/15/2020 FINDINGS: LINES/TUBES:Interval removal of nontunneled right IJ central venous catheter. Tunneled right IJ dialysis catheter unchanged. LUNGS:The lungs are well-inflated. No focal consolidation or pulmonary edema. PLEURA:No pleural effusion or pneumothorax. MEDIASTINUM:The cardiomediastinal silhouette appears normal in size and shape. BONES/SOFT TISSUES:No acute osseous injury. ABDOMEN:No free air under the diaphragm. IMPRESSION: Interval removal of nontunneled right IJ central venous catheter. No focal pneumonia or pulmonary edema. Signed by: Omar Carbajal MD on 03/06/2020 12:03 PM
== END ==
LOC: DX 10:41
PROVIDERS: ATTEND Internal Medicine
DX: T80.212A Local infection due to central venous catheter, initial encounter (principal)
CPT/HCPCS: 36589; 71045; J2001

== ENCOUNTER → 2023-07-01 | Outpatient (RCR) | payer MEDICARE ==
[~2023-07-01] MED LIST changes: +AUGMENTIN 500-1 EACH PO; +CARVEDILOL3.125 MG PO; +CILOSTAZOL50 MG PO; +COLLAGENASE OINTMENT 30 GM TUBE ONE; +CYTOMEL25 MCG PO; +ELIQUIS2.5 MG PO; +FISH OIL 1,001000 M1 PO; +FLOMAX0.4 MG PO; +FLUCONAZOLE100 MG PO; +IPRATROPIU0.2 MG/1 M INH; -LIDOCAINE HCL 1% LOCAL INJ 20 ML VIAL ONE; +LIDOCAINE VISC 2% SOLN 15 ML UDC ONE; +MINERAL OIL/PETROLAT/GLYCERI 6OZ BTL ONE; +NEURONTIN100 MG PO; +PRAMIPEXOLE DIHY1 MG PO; +RENA-VITE TABL0.8 MG PO; +SENOKOT8.6 MG PO; +SEVELAMER CARB800 MG PO; +TOPROL XL25 MG PO; +TRELEGY ELLIPT1 EACH INH; +TYLENOL325 MG PO
== END | disposition still patient (30) ==
LOC: WCC 06-17 14:40
PROVIDERS: ATTEND Internal Medicine Infectious Disease
DX: E11.621 Type 2 diabetes mellitus with foot ulcer (principal); L89.620 Pressure ulcer of left heel, unstageable; L97.423 Non-pressure chronic ulcer of left heel and midfoot with necrosis of muscle; R60.0 Localized edema
CPT/HCPCS: 83036

== ENCOUNTER 2023-08-05 14:10 | Outpatient (RCR) | payer MEDICARE ==
[~2023-08-05 14:10] MED LIST changes: -AUGMENTIN 500-1 EACH PO; -CARVEDILOL3.125 MG PO; -CILOSTAZOL50 MG PO; -COLLAGENASE OINTMENT 30 GM TUBE ONE; -CYTOMEL25 MCG PO; -ELIQUIS2.5 MG PO; -FISH OIL 1,001000 M1 PO; -FLOMAX0.4 MG PO; -FLUCONAZOLE100 MG PO; -IPRATROPIU0.2 MG/1 M INH; -MINERAL OIL/PETROLAT/GLYCERI 6OZ BTL ONE; +MUPIROCIN 2% OINT 22 GM TUBE ONE; -NEURONTIN100 MG PO; -PRAMIPEXOLE DIHY1 MG PO; -RENA-VITE TABL0.8 MG PO; -SENOKOT8.6 MG PO; -SEVELAMER CARB800 MG PO; -TOPROL XL25 MG PO; -TRELEGY ELLIPT1 EACH INH; -TYLENOL325 MG PO
[2023-08-05] MEDS ORDERED: ELIQUIS2.5 MG PO (21:04)
[2023-08-05] MEDS ORDERED: PRAMIPEXOLE DIHY1 MG PO (21:04)
[2023-08-05] MEDS ORDERED: TRELEGY ELLIPT1 EACH INH (21:04)
[2023-08-05] MEDS ORDERED: CILOSTAZOL50 MG PO (21:04)
[2023-08-05] MEDS ORDERED: NEURONTIN100 MG PO (21:04)
[2023-08-05] MEDS ORDERED: IPRATROPIU0.2 MG/1 M INH (21:04)
[2023-08-05] MEDS ORDERED: CYTOMEL25 MCG PO (21:04)
[2023-08-05] MEDS ORDERED: TYLENOL325 MG PO (21:04)
[2023-08-05] MEDS ORDERED: SEVELAMER CARB800 MG PO (21:04)
[2023-08-05] MEDS ORDERED: CARVEDILOL3.125 MG PO (21:04)
[2023-08-05] MEDS ORDERED: AUGMENTIN 500-1 EACH PO (21:04)
[2023-08-05] MEDS ORDERED: FLOMAX0.4 MG PO (21:04)
[2023-08-05] MEDS ORDERED: FISH OIL 1,001000 M1 PO (21:04)
[2023-08-05] MEDS ORDERED: RENA-VITE TABL0.8 MG PO (21:04)
[2023-08-05] MEDS ORDERED: FLUCONAZOLE100 MG PO (21:04)
[2023-08-18] MEDS ORDERED: TOPROL XL25 MG PO (10:56)
[2023-08-18] MEDS ORDERED: SENOKOT8.6 MG PO (10:56)
== END 2023-08-31 ==
LOC: WCC 14:10
PROVIDERS: ATTEND Nurse Practitioner Family
DX: E11.621 Type 2 diabetes mellitus with foot ulcer (principal); L89.523 Pressure ulcer of left ankle, stage 3; L89.620 Pressure ulcer of left heel, unstageable; L97.423 Non-pressure chronic ulcer of left heel and midfoot with necrosis of muscle; R60.0 Localized edema

== ENCOUNTER 2024-02-09 13:41 | Emergency (ER) | payer MEDICARE ==
[~2024-02-09] VITALS: Ht 170.2 cm; Wt 95.3 kg
[~2024-02-09 13:41] MED LIST changes: +AUGMENTIN 500-1 EACH PO; +CARVEDILOL3.125 MG PO; +CILOSTAZOL50 MG PO; +CYTOMEL25 MCG PO; +ELIQUIS2.5 MG PO; +FISH OIL 1,001000 M1 PO; +FLOMAX0.4 MG PO; +FLUCONAZOLE100 MG PO; +IPRATROPIU0.2 MG/1 M INH; -LIDOCAINE VISC 2% SOLN 15 ML UDC ONE; -MUPIROCIN 2% OINT 22 GM TUBE ONE; +NEURONTIN100 MG PO; +PRAMIPEXOLE DIHY1 MG PO; +RENA-VITE TABL0.8 MG PO; +SENOKOT8.6 MG PO; +SEVELAMER CARB800 MG PO; +TOPROL XL25 MG PO; +TRELEGY ELLIPT1 EACH INH; +TYLENOL325 MG PO
[2024-02-09 13:45] VITALS: TEMP 99.2
[2024-02-09] MEDS ORDERED: FLUCONAZOLE200 MG PO (15:00)
[2024-02-09] MEDS ORDERED: DOXYCYCLINE HY100 MG PO (15:01)
[2024-02-09 16:00] VITALS: PULSE 84; RESP 24; O2SAT 99
== END 2024-02-09 16:56 | disposition home or self-care (01) ==
LOC: ER 13:46
DX: B37.2 Candidiasis of skin and nail (principal); I12.0 Hypertensive chronic kidney disease with stage 5 chronic kidney disease or end stage renal disease; N18.6 End stage renal disease; Z99.2 Dependence on renal dialysis; J44.9 Chronic obstructive pulmonary disease, unspecified; I50.9 Heart failure, unspecified; I48.91 Unspecified atrial fibrillation; D64.9 Anemia, unspecified; E78.5 Hyperlipidemia, unspecified; F32.A Depression, unspecified; F03.90 Unspecified dementia, unspecified severity, without behavioral disturbance, psychotic disturbance, mood disturbance, and anxiety; Z95.1 Presence of aortocoronary bypass graft
CPT/HCPCS: 93971; 99284

== ENCOUNTER 2024-03-01 13:17 | Emergency (ER) | payer MEDICARE ==
[~2024-03-01] VITALS: Ht 170.2 cm; Wt 95.3 kg
[~2024-03-01 13:17] MED LIST changes: +DOXYCYCLINE HY100 MG PO; +FLUCONAZOLE200 MG PO; -HUMALOG100 UNIT/1; +HUMALOG100 UNIT/1 SC
[2024-03-01 13:21] VITALS: PULSE 93; RESP 17; TEMP 98.7
[2024-03-01] MEDS ORDERED: CEFDINIR300 MG PO (13:50)
[2024-03-01 14:33] LABS: CLARITY,URINE CLOUDY (CLEAR); COLOR,URINE YELLOW (YELLOW)
[2024-03-01 14:34] LABS: BILIRUBIN,URINE NEGATIVE (NEGATIVE); GLUCOSE, URINE NEGATIVE (NEGATIVE); KETONES,URINE NEGATIVE (NEGATIVE); LEUKOCYTE ESTERASE ,URINE LARGE (NEGATIVE); PH,URINE 6 (5 - 7); PROTEIN,URINE DIPSTICK 1+ (NEGATIVE)
[2024-03-01 14:35] LABS: NITRITE,URINE NEGATIVE (NEGATIVE); URINE UROBILINOGEN 0.2 mg/dL (0.2 - 1)
[2024-03-01 14:46] LABS: WBC,URINE (MAN) >50 /HPF (0-5)
[2024-03-01 14:48] LABS: BACTERIA,URINE MANY /HPF; EPITHELIAL CELLS,URINE FEW /LPF; RBC,URINE 21-50 /HPF (0-5); RENAL EPITHELIAL CELLS,URINE FEW
[2024-03-01 15:18] VITALS: BP 135/77; PULSE 90; RESP 16; O2SAT 100
== END 2024-03-01 15:17 | disposition home or self-care (01) ==
LOC: ER 13:34
DX: Z46.6 Encounter for fitting and adjustment of urinary device (principal); I12.0 Hypertensive chronic kidney disease with stage 5 chronic kidney disease or end stage renal disease; N18.6 End stage renal disease; Z99.2 Dependence on renal dialysis; J44.9 Chronic obstructive pulmonary disease, unspecified; I50.9 Heart failure, unspecified; F03.90 Unspecified dementia, unspecified severity, without behavioral disturbance, psychotic disturbance, mood disturbance, and anxiety; I48.91 Unspecified atrial fibrillation; E78.5 Hyperlipidemia, unspecified; E03.9 Hypothyroidism, unspecified; D64.9 Anemia, unspecified; F32.A Depression, unspecified; Z95.1 Presence of aortocoronary bypass graft; Z89.612 Acquired absence of left leg above knee
CPT/HCPCS: 51700; 81001; 87086; 87186; 99284

== ENCOUNTER 2024-03-07 15:00 | Inpatient (IN) | payer MEDICARE ==
[~2024-03-07] VITALS: Ht 170.2 cm; Wt 95.3 kg
[~2024-03-07 15:00] MED LIST changes: +CEFDINIR300 MG PO
[2024-03-07] MEDS ORDERED: ACETAMINOPHEN 325 MG TAB PO ONE (15:30)
[2024-03-07 15:59] LABS: BASOPHILS % 0.2 % (0.0-1.0); HEMATOCRIT 46.4 % (34.2-44.1); HEMOGLOBIN 13.7 g/dL (12.0-16.0); LYMPHOCYTES # (AUTO) 2.5 (1.0-3.2); LYMPHOCYTES % 12.3 % (18.0-39.1); MEAN CORPUSCULAR HEMOGLOBIN 26.1 pg (28-32); MEAN CORPUSCULAR HGB CONC 29.5 g/dL (31-35); MEAN CORPUSCULAR VOLUME 88.5 fL (81-99); MONOCYTES # (AUTO) 2.3 (0.2-0.8); MONOCYTES % 11.5 % (4.4-11.3); NEUTROPHILS % 75.2 % (38.7-80.0); PLATELET COUNT 247 x10e3/uL (140-360); RED BLOOD COUNT 5.24 x10e6/uL (3.6-5.1); RED CELL DISTRIBUTION WIDTH 15.4 % (11.7-14.4); WHITE BLOOD COUNT 19.92 x10e3/uL (4.8-10.8)
[2024-03-07 16:00] LABS: CLARITY,URINE TURBID (CLEAR); COLOR,URINE RED (YELLOW)
[2024-03-07] MEDS: ACETAMINOPHEN 1000 MG/100 ML IV STA (16:00)
[2024-03-07 16:05] LABS: INR 1.19; PROTHROMBIN TIME 15.7 seconds (11.9-14.5)
[2024-03-07 16:07] LABS: PARTIAL THROMBOPLASTIN TIME 71.2 seconds (23.8-35.5)
[2024-03-07 16:12] LABS: BILIRUBIN,URINE NEGATIVE (NEGATIVE); GLUCOSE, URINE 2+ (NEGATIVE); KETONES,URINE 1+ (NEGATIVE); LEUKOCYTE ESTERASE ,URINE LARGE (NEGATIVE); NITRITE,URINE NEGATIVE (NEGATIVE); PH,URINE 5.5 (5 - 7); PROTEIN,URINE DIPSTICK >=300 (NEGATIVE); URINE UROBILINOGEN 0.2 mg/dL (0.2 - 1)
[2024-03-07 16:13] LABS: ALBUMIN 3.1 g/dL (3.5-5.0); ALBUMIN/GLOBULIN RATIO 0.8 (0.8-2.0); ANION GAP 24.1 mmol/L (8-16); BILIRUBIN,TOTAL 0.5 mg/dL (0.2-1.2); CALCIUM 9.8 mg/dL (8.4-10.2); CREATININE, SERUM 6.43 mg/dL (0.57-1.11); POTASSIUM 4.1 mmol/L (3.5-5.1); TOTAL PROTEIN 6.9 g/dL (6.5-8.1)
[2024-03-07 16:14] LABS: BACTERIA,URINE MANY /HPF; TRANSITIONAL EPI CELLS,URINE RARE
[2024-03-07] MEDS: SODIUM CHLORIDE 0.9% 1000ML 1,000 ML IV ONE (16:36)
[2024-03-07] MEDS: METOPROLOL TARTRATE INJ 1 MG/ML VIAL IV ONE (16:37)
[2024-03-07] MEDS ORDERED: ONDANSETRON HCL INJ 2MG/ML 2ML 2 MG/ML VIAL IV PRN (17:00)
[2024-03-07] MEDS ORDERED: SODIUM CHLORIDE FLUSH 10 ML SYR INJ PRN (17:00)
[2024-03-07 17:21] VITALS: PULSE 103; RESP 18; TEMP 99.1
[2024-03-07 18:35] VITALS: BP 151/81; PULSE 103; RESP 22; TEMP 99.7; O2SAT 100
[2024-03-07] MEDS ORDERED: IOPAMIDOL 370 MG/ML 100 ML INFUS..BTL INJ ONE (19:52)
[2024-03-07 20:00] VITALS: BP 117/81; PULSE 113; RESP 16; TEMP 97.5; O2SAT 100
[2024-03-07] MEDS ORDERED: ACETAMINOPHEN 1000 MG/100 ML IV PRN (20:00)
[2024-03-07 20:15] VITALS: BP 117/81; PULSE 113; RESP 16; TEMP 97.5; O2SAT 100
[2024-03-07] MEDS ORDERED: NITROFURANTOIN100 MG PO (20:39)
[2024-03-07] MEDS ORDERED: RENA-VITE RX T1 EACH PO (20:39)
[2024-03-07] MEDS: MEMANTINE 10 MG TAB PO SCH (21:04)
[2024-03-07] MEDS: INSULIN GLARGINE 100 UNITS/ML VIAL SQ SCH (21:16)
[2024-03-07] MEDS: INSULIN REGULAR, HUMAN 100 UNIT/1 ML SQ SCH (21:16)
[2024-03-07] MEDS ORDERED: METOPROLOL TARTRATE 25 MG TAB PO SCH (22:15)
[2024-03-07] MEDS: SODIUM CHLORIDE 0.9% 100 ML ONE (23:07)
[2024-03-08] VITALS (7 sets, daily range): BP systolic 118–166; BP diastolic 66–87; PULSE 89–102; RESP 16–21; TEMP 98.1–102.4; O2SAT 98–100
[2024-03-08] MEDS: BISACODYL 10 MG SUPP PR ONE ×2 (00:26→09:52)
[2024-03-08 05:45] LABS: BASOPHILS % 0.2 % (0.0-1.0); HEMATOCRIT 34.7 % (34.2-44.1); HEMOGLOBIN 10.3 g/dL (12.0-16.0); LYMPHOCYTES # (AUTO) 2.7 (1.0-3.2); LYMPHOCYTES % 13.7 % (18.0-39.1); MEAN CORPUSCULAR HEMOGLOBIN 26.5 pg (28-32); MEAN CORPUSCULAR HGB CONC 29.7 g/dL (31-35); MEAN CORPUSCULAR VOLUME 89.2 fL (81-99); MONOCYTES # (AUTO) 1.9 (0.2-0.8); MONOCYTES % 9.8 % (4.4-11.3); NEUTROPHILS # (AUTO) 14.9 (2.1-6.9); NEUTROPHILS % 75.8 % (38.7-80.0); PLATELET COUNT 189 x10e3/uL (140-360); RED BLOOD COUNT 3.89 x10e6/uL (3.6-5.1); RED CELL DISTRIBUTION WIDTH 15.6 % (11.7-14.4); WHITE BLOOD COUNT 19.68 x10e3/uL (4.8-10.8)
[2024-03-08 06:07] LABS: ALBUMIN 2.3 g/dL (3.5-5.0); ALBUMIN/GLOBULIN RATIO 0.7 (0.8-2.0); ANION GAP 26.7 mmol/L (8-16); BILIRUBIN,TOTAL 0.5 mg/dL (0.2-1.2); CALCIUM 8.1 mg/dL (8.4-10.2); CREATININE, SERUM 6.46 mg/dL (0.57-1.11); POTASSIUM 3.7 mmol/L (3.5-5.1); TOTAL PROTEIN 5.4 g/dL (6.5-8.1)
[2024-03-08] MEDS: POLYETHYLENE GLYCOL 3350 17 GM PACK PO ONE ×2 (06:17→09:55)
[2024-03-08] MEDS: MINERAL OIL 132 ML BTL PR ONE (06:18)
[2024-03-08] MEDS: LIOTHYRONINE SODIUM 5 MCG TAB PO SCH (06:24)
[2024-03-08] MEDS ORDERED: APIXABAN 2.5 MG TABLET PO SCH (09:00)
[2024-03-08] MEDS: PANTOPRAZOLE SOD 40 MG TABEC PO SCH (09:00)
[2024-03-08] MEDS: METOPROLOL SUCCINATE 25 MG TAB XL PO SCH (09:00)
[2024-03-08] MEDS: INSULIN GLARGINE 100 UNITS/ML VIAL SQ ONE (09:53)
[2024-03-08] MEDS: SODIUM CHLORIDE 0.9% 1000ML 2,000 ML ONE (11:51)
[2024-03-08] MEDS: Vancomycin IV 1 GM in SODIUM CHLORIDE 0.9% 250ML 250 ML IV SCH (13:00)
[2024-03-08] MEDS: HEPARIN SOD (PORCINE) 1000 UNIT/ML SDV ONE (16:13)
[2024-03-08] MEDS: POLYETHYLENE GLYCOL 3350 17 GM PACK PO SCH (17:45)
[2024-03-08] MEDS: ATORVASTATIN 10 MG TAB PO SCH (21:45)
[2024-03-08] MEDS: COLLAGENASE 5 GM TUBE TP SCH (22:07)
[2024-03-08] MEDS: INSULIN GLARGINE 100 UNITS/ML VIAL SQ SCH (22:13)
[2024-03-09] VITALS (8 sets, daily range): BP systolic 130–147; BP diastolic 39–89; PULSE 79–97; RESP 16–21; TEMP 98.2–99; O2SAT 100
[2024-03-09 07:32] LABS: HEPATITIS B CORE AB TOTAL Positive; HEPATITIS B CORE IGM (P) Negative; HEPATITIS B SURFACE AG (P) Negative; HEPATITIS BE ANTIGEN Negative
[2024-03-09 08:37] LABS: BASOPHILS # (AUTO) 0.1 (0.0-0.1); BASOPHILS % 0.4 % (0.0-1.0); EOSINOPHILS # (AUTO) 0.4 (0.0-0.4); EOSINOPHILS % 3.1 % (0.0-6.0); HEMATOCRIT 39.6 % (34.2-44.1); HEMOGLOBIN 11.6 g/dL (12.0-16.0); LYMPHOCYTES # (AUTO) 2.3 (1.0-3.2); LYMPHOCYTES % 17.6 % (18.0-39.1); MEAN CORPUSCULAR HEMOGLOBIN 26.4 pg (28-32); MEAN CORPUSCULAR HGB CONC 29.3 g/dL (31-35); MONOCYTES # (AUTO) 1.3 (0.2-0.8); MONOCYTES % 10.1 % (4.4-11.3); NEUTROPHILS # (AUTO) 8.9 (2.1-6.9); NEUTROPHILS % 68.3 % (38.7-80.0); PLATELET COUNT 184 x10e3/uL (140-360); RED CELL DISTRIBUTION WIDTH 15.3 % (11.7-14.4); WHITE BLOOD COUNT 13.04 x10e3/uL (4.8-10.8)
[2024-03-09] MEDS: APIXABAN 2.5 MG TABLET PO SCH (08:46)
[2024-03-09] MEDS: LEVOFLOXACIN 500MG/D5W 100ML 100 ML IV SCH (08:47)
[2024-03-09 08:58] LABS: ALBUMIN 2.3 g/dL (3.5-5.0); ALBUMIN/GLOBULIN RATIO 0.7 (0.8-2.0); ANION GAP 16.5 mmol/L (8-16); BILIRUBIN,TOTAL 0.5 mg/dL (0.2-1.2); CALCIUM 8.8 mg/dL (8.4-10.2); CREATININE, SERUM 4.62 mg/dL (0.57-1.11); POTASSIUM 3.5 mmol/L (3.5-5.1); TOTAL PROTEIN 5.5 g/dL (6.5-8.1)
[2024-03-09] MEDS ORDERED: COLLAGENASE 5 GM TUBE TP SCH (09:00)
[2024-03-10] VITALS (7 sets, daily range): BP systolic 126–161; BP diastolic 69–89; PULSE 72–96; RESP 17–24; TEMP 97.7–99.6; O2SAT 100
[2024-03-10 05:24] LABS: BASOPHILS % 0.3 % (0.0-1.0); EOSINOPHILS # (AUTO) 0.2 (0.0-0.4); EOSINOPHILS % 2.1 % (0.0-6.0); HEMATOCRIT 39.6 % (34.2-44.1); HEMOGLOBIN 11.5 g/dL (12.0-16.0); LYMPHOCYTES # (AUTO) 2.2 (1.0-3.2); LYMPHOCYTES % 22.2 % (18.0-39.1); MEAN CORPUSCULAR HEMOGLOBIN 26.4 pg (28-32); MEAN CORPUSCULAR VOLUME 90.8 fL (81-99); MONOCYTES % 10.5 % (4.4-11.3); NEUTROPHILS # (AUTO) 6.2 (2.1-6.9); NEUTROPHILS % 64.5 % (38.7-80.0); PLATELET COUNT 141 x10e3/uL (140-360); RED BLOOD COUNT 4.36 x10e6/uL (3.6-5.1); RED CELL DISTRIBUTION WIDTH 15.8 % (11.7-14.4); WHITE BLOOD COUNT 9.68 x10e3/uL (4.8-10.8)
[2024-03-10 05:50] LABS: ALBUMIN 2.1 g/dL (3.5-5.0); ALBUMIN/GLOBULIN RATIO 0.7 (0.8-2.0); ANION GAP 21.2 mmol/L (8-16); BILIRUBIN,TOTAL 0.4 mg/dL (0.2-1.2); CALCIUM 8.7 mg/dL (8.4-10.2); CREATININE, SERUM 5.36 mg/dL (0.57-1.11); POTASSIUM 4.2 mmol/L (3.5-5.1); TOTAL PROTEIN 5.3 g/dL (6.5-8.1)
[2024-03-10] MEDS ORDERED: SODIUM CHLORIDE 0.9% 250ML 500 ML IV PRN (14:15)
[2024-03-10] MEDS ORDERED: HEPARIN SOD (PORCINE) 1000 UNIT/ML SDV IV PRN (14:15)
[2024-03-10] MEDS ORDERED: ALBUMIN 25% 12.5GM 0.25 GM/ML BTL IV PRN (14:15)
[2024-03-10] MEDS: SODIUM CHLORIDE 0.9% 1000ML 1,000 ML ONE (21:48)
[2024-03-10] MEDS: SODIUM CHLORIDE 0.9% 1000ML 2,000 ML ONE (21:48)
[2024-03-11] VITALS (7 sets, daily range): BP systolic 150–166; BP diastolic 65–80; PULSE 72–92; RESP 15–18; TEMP 97.6–98.7; O2SAT 100
[2024-03-11 06:03] LABS: BASOPHILS % 0.4 % (0.0-1.0); EOSINOPHILS # (AUTO) 0.3 (0.0-0.4); EOSINOPHILS % 2.7 % (0.0-6.0); HEMATOCRIT 39.7 % (34.2-44.1); HEMOGLOBIN 11.4 g/dL (12.0-16.0); LYMPHOCYTES # (AUTO) 2.5 (1.0-3.2); LYMPHOCYTES % 25.2 % (18.0-39.1); MEAN CORPUSCULAR HEMOGLOBIN 26.1 pg (28-32); MEAN CORPUSCULAR HGB CONC 28.7 g/dL (31-35); MEAN CORPUSCULAR VOLUME 91.1 fL (81-99); MONOCYTES # (AUTO) 1.1 (0.2-0.8); MONOCYTES % 10.9 % (4.4-11.3); NEUTROPHILS % 60.3 % (38.7-80.0); PLATELET COUNT 219 x10e3/uL (140-360); RED BLOOD COUNT 4.36 x10e6/uL (3.6-5.1); RED CELL DISTRIBUTION WIDTH 15.3 % (11.7-14.4); WHITE BLOOD COUNT 9.86 x10e3/uL (4.8-10.8)
[2024-03-11 06:34] LABS: ALBUMIN 2.1 g/dL (3.5-5.0); ALBUMIN/GLOBULIN RATIO 0.7 (0.8-2.0); ANION GAP 14.4 mmol/L (8-16); BILIRUBIN,TOTAL 0.4 mg/dL (0.2-1.2); CALCIUM 8.6 mg/dL (8.4-10.2); CREATININE, SERUM 3.87 mg/dL (0.57-1.11); TOTAL PROTEIN 5.2 g/dL (6.5-8.1)
[2024-03-11 06:36] LABS: POTASSIUM 3.4 mmol/L (3.5-5.1)
[2024-03-11 15:51] LABS: HEPATITIS BE ANTIBODY Reactive (Negative)
[2024-03-12] VITALS (8 sets, daily range): BP systolic 144–173; BP diastolic 59–96; PULSE 67–90; RESP 17–18; TEMP 97.6–98.5; O2SAT 100
[2024-03-13] VITALS (7 sets, daily range): BP systolic 146–171; BP diastolic 56–83; PULSE 81–85; RESP 17–23; TEMP 98.2–98.6; O2SAT 99–100
[2024-03-13 08:04] LABS: BASOPHILS # (AUTO) 0.1 (0.0-0.1); BASOPHILS % 0.4 % (0.0-1.0); EOSINOPHILS # (AUTO) 0.3 (0.0-0.4); EOSINOPHILS % 2.7 % (0.0-6.0); HEMATOCRIT 40.5 % (34.2-44.1); HEMOGLOBIN 12.1 g/dL (12.0-16.0); LYMPHOCYTES % 17.8 % (18.0-39.1); MEAN CORPUSCULAR HEMOGLOBIN 26.2 pg (28-32); MEAN CORPUSCULAR HGB CONC 29.9 g/dL (31-35); MEAN CORPUSCULAR VOLUME 87.9 fL (81-99); MONOCYTES # (AUTO) 1.1 (0.2-0.8); MONOCYTES % 9.7 % (4.4-11.3); NEUTROPHILS # (AUTO) 7.7 (2.1-6.9); NEUTROPHILS % 68.7 % (38.7-80.0); PLATELET COUNT 249 x10e3/uL (140-360); RED BLOOD COUNT 4.61 x10e6/uL (3.6-5.1); RED CELL DISTRIBUTION WIDTH 15.6 % (11.7-14.4); WHITE BLOOD COUNT 11.23 x10e3/uL (4.8-10.8)
[2024-03-13 08:42] LABS: ALBUMIN 2.3 g/dL (3.5-5.0); ALBUMIN/GLOBULIN RATIO 0.7 (0.8-2.0); ANION GAP 19.4 mmol/L (8-16); BILIRUBIN,TOTAL 0.4 mg/dL (0.2-1.2); CALCIUM 8.9 mg/dL (8.4-10.2); CREATININE, SERUM 5.77 mg/dL (0.57-1.11); POTASSIUM 4.4 mmol/L (3.5-5.1); TOTAL PROTEIN 5.4 g/dL (6.5-8.1)
[2024-03-13] MEDS ORDERED: HEPARIN SOD (PORCINE) 1000 UNIT/ML SDV IV PRN (12:45)
[2024-03-13] MEDS: SODIUM CHLORIDE 0.9% 1000ML 2,000 ML IV PRN (12:47)
[2024-03-13] MEDS: SODIUM CHLORIDE 0.9% 250ML 250 ML ONE (16:11)
[2024-03-13] MEDS ORDERED: HYDRALAZINE HCL 20 MG/ML VIAL IV PRN (19:45)
[2024-03-14] VITALS (8 sets, daily range): BP systolic 109–154; BP diastolic 51–81; PULSE 71–89; RESP 16–21; TEMP 97.4–98.9; O2SAT 98–100
[2024-03-14 05:16] LABS: BASOPHILS # (AUTO) 0.1 (0.0-0.1); BASOPHILS % 0.5 % (0.0-1.0); EOSINOPHILS # (AUTO) 0.4 (0.0-0.4); EOSINOPHILS % 3.2 % (0.0-6.0); HEMATOCRIT 38.9 % (34.2-44.1); HEMOGLOBIN 11.1 g/dL (12.0-16.0); LYMPHOCYTES # (AUTO) 3.4 (1.0-3.2); LYMPHOCYTES % 28.7 % (18.0-39.1); MEAN CORPUSCULAR HEMOGLOBIN 25.9 pg (28-32); MEAN CORPUSCULAR HGB CONC 28.5 g/dL (31-35); MEAN CORPUSCULAR VOLUME 90.7 fL (81-99); MONOCYTES # (AUTO) 1.5 (0.2-0.8); MONOCYTES % 12.7 % (4.4-11.3); NEUTROPHILS # (AUTO) 6.3 (2.1-6.9); PLATELET COUNT 262 x10e3/uL (140-360); RED BLOOD COUNT 4.29 x10e6/uL (3.6-5.1); RED CELL DISTRIBUTION WIDTH 15.7 % (11.7-14.4); WHITE BLOOD COUNT 11.75 x10e3/uL (4.8-10.8)
[2024-03-14] MEDS: DEXTROSE 50% SYRINGE 50 ML IV PRN (07:26)
[2024-03-14] MEDS: METOPROLOL SUCCINATE 25 MG TAB XL PO SCH (09:00)
[2024-03-14] MEDS ORDERED: SODIUM CHLORIDE 0.9% 250ML 250 ML ONE (10:14)
[2024-03-14] MEDS ORDERED: BUPIVACAINE 0.25% 30ML SDV ONE (11:38)
[2024-03-14] MEDS: DEXTROSE 50% SYRINGE 50 ML IV ONE (12:19)
[2024-03-14] MEDS ORDERED: INSULIN REGULAR, HUMAN 100 UNIT/1 ML SQ SCH (17:15)
[2024-03-14] MEDS ORDERED: INSULIN GLARGINE 100 UNITS/ML VIAL SQ SCH (21:00)
[2024-03-14] MEDS: INSULIN GLARGINE 100 UNITS/ML VIAL SQ SCH (22:39)
[2024-03-15] VITALS (8 sets, daily range): BP systolic 149–166; BP diastolic 69–82; PULSE 72–91; RESP 16–21; TEMP 97.6–98.9; O2SAT 95–100
[2024-03-15] MEDS ORDERED: PROPOFOL IV EMULSION 10 MG/ML 20 ML VIAL ONE (02:42)
[2024-03-15] MEDS ORDERED: LIDOCAINE HCL 2% LOCAL INJ 5 ML SDV VIAL INJ ONE (02:42)
[2024-03-15] MEDS ORDERED: FENTANYL CITRATE/PF 100MCG/2 ML INJ ONE ×2 (03:25→15:06)
[2024-03-15] MEDS ORDERED: MIDAZOLAM HCL 2 MG/2 ML VIAL ONE (03:25)
[2024-03-15 05:43] LABS: BASOPHILS # (AUTO) 0.1 (0.0-0.1); BASOPHILS % 0.4 % (0.0-1.0); EOSINOPHILS # (AUTO) 0.4 (0.0-0.4); EOSINOPHILS % 3.1 % (0.0-6.0); HEMATOCRIT 37.5 % (34.2-44.1); HEMOGLOBIN 10.8 g/dL (12.0-16.0); LYMPHOCYTES # (AUTO) 2.3 (1.0-3.2); LYMPHOCYTES % 20.2 % (18.0-39.1); MEAN CORPUSCULAR HEMOGLOBIN 26.3 pg (28-32); MEAN CORPUSCULAR HGB CONC 28.8 g/dL (31-35); MEAN CORPUSCULAR VOLUME 91.2 fL (81-99); MONOCYTES # (AUTO) 1.5 (0.2-0.8); MONOCYTES % 13.2 % (4.4-11.3); NEUTROPHILS % 62.2 % (38.7-80.0); PLATELET COUNT 263 x10e3/uL (140-360); RED BLOOD COUNT 4.11 x10e6/uL (3.6-5.1); RED CELL DISTRIBUTION WIDTH 15.7 % (11.7-14.4); WHITE BLOOD COUNT 11.21 x10e3/uL (4.8-10.8)
[2024-03-15] MEDS: FOSFOMYCIN TROMETHAMINE 3 GM PACKET PO ONE (09:24)
[2024-03-15] MEDS: ALTEPLASE RECOMBINANT 2 MG/2 ML VIAL IV PRN (11:32)
[2024-03-15] MEDS ORDERED: SODIUM CHLORIDE 0.9% 500ML 500 ML ONE (13:19)
[2024-03-15] MEDS ORDERED: LIDOCAINE HCL 1% LOCAL INJ 20 ML VIAL ONE (13:19)
[2024-03-15] MEDS ORDERED: LIDOCAINE HCL 1% 2 ML AMP ONE (13:19)
[2024-03-15] MEDS ORDERED: HEPARIN SOD (PORCINE) 1000 UNIT/ML SDV ONE (15:02)
[2024-03-16] VITALS: BP 166/86; PULSE 77; RESP 20; TEMP 98.1; O2SAT 100
[2024-03-16 04:47] VITALS: BP 121/77; PULSE 85; RESP 16; TEMP 98.1; O2SAT 100
[2024-03-16 05:39] LABS: BASOPHILS % 0.4 % (0.0-1.0); EOSINOPHILS # (AUTO) 0.4 (0.0-0.4); EOSINOPHILS % 3.9 % (0.0-6.0); HEMATOCRIT 36.7 % (34.2-44.1); LYMPHOCYTES # (AUTO) 2.4 (1.0-3.2); LYMPHOCYTES % 27.2 % (18.0-39.1); MEAN CORPUSCULAR HEMOGLOBIN 26.3 pg (28-32); MEAN CORPUSCULAR VOLUME 87.8 fL (81-99); MONOCYTES # (AUTO) 1.5 (0.2-0.8); MONOCYTES % 16.7 % (4.4-11.3); NEUTROPHILS # (AUTO) 4.6 (2.1-6.9); NEUTROPHILS % 51.1 % (38.7-80.0); PLATELET COUNT 286 x10e3/uL (140-360); RED BLOOD COUNT 4.18 x10e6/uL (3.6-5.1); RED CELL DISTRIBUTION WIDTH 15.6 % (11.7-14.4); WHITE BLOOD COUNT 8.93 x10e3/uL (4.8-10.8)
[2024-03-16 05:56] LABS: ALBUMIN 2.2 g/dL (3.5-5.0); ALBUMIN/GLOBULIN RATIO 0.7 (0.8-2.0); ANION GAP 17.3 mmol/L (8-16); BILIRUBIN,TOTAL 0.4 mg/dL (0.2-1.2); CALCIUM 8.6 mg/dL (8.4-10.2); CREATININE, SERUM 5.19 mg/dL (0.57-1.11); TOTAL PROTEIN 5.3 g/dL (6.5-8.1)
[2024-03-16 05:57] LABS: POTASSIUM 5.3 mmol/L (3.5-5.1)
[2024-03-16 08:03] VITALS: BP 177/88; PULSE 81; RESP 20; TEMP 98.6; O2SAT 100
[2024-03-16 08:09] VITALS: BP 177/88; PULSE 81; RESP 20; TEMP 98.6; O2SAT 100
[2024-03-16 11:20] VITALS: BP 174/79; PULSE 83; RESP 19; TEMP 98.3; O2SAT 100
[2024-03-16] MEDS: VANCOMYCIN 1.5 GM/300 ML (PEG) 300 ML IV ONE (13:18)
[2024-03-16] MEDS ORDERED: HEPARIN SOD (PORCINE) 1000 UNIT/ML SDV IV PRN (13:45)
[2024-03-16 16:20] VITALS: BP 168/88; PULSE 85; RESP 20; TEMP 98; O2SAT 100
== END 2024-03-16 16:39 | disposition home health service (06) | DRG 871 ==
LOC: ER 15:12 → ERHOLD 16:51 → MED/SURG 18:21
PROVIDERS: ADMIT Family Medicine Adult Medicine; ATTEND Family Medicine Adult Medicine
PROC: 3E0333Z Introduction of Anti-inflammatory into Peripheral Vein, Percutaneous Approach (ICD-10-PCS; 2024-03-07)
PROC: 5A1D70Z Performance of Urinary Filtration, Intermittent, Less than 6 Hours Per Day (ICD-10-PCS; 2024-03-08)
PROC: 0T9B30Z Drainage of Bladder with Drainage Device, Percutaneous Approach (ICD-10-PCS; 2024-03-14)
PROC: 02PYX3Z Removal of Infusion Device from Great Vessel, External Approach (ICD-10-PCS; principal; 2024-03-15)
PROC: 02H633Z Insertion of Infusion Device into Right Atrium, Percutaneous Approach (ICD-10-PCS; 2024-03-15)
DX: A41.51 Sepsis due to Escherichia coli [E. coli] (principal); N18.6 End stage renal disease; Z16.12 Extended spectrum beta lactamase (ESBL) resistance; I12.0 Hypertensive chronic kidney disease with stage 5 chronic kidney disease or end stage renal disease; E87.1 Hypo-osmolality and hyponatremia; F03.93 Unspecified dementia, unspecified severity, with mood disturbance; Z16.24 Resistance to multiple antibiotics; E87.20 Acidosis, unspecified; T82.49XA Other complication of vascular dialysis catheter, initial encounter; E11.22 Type 2 diabetes mellitus with diabetic chronic kidney disease; D63.1 Anemia in chronic kidney disease; Z99.2 Dependence on renal dialysis; I48.91 Unspecified atrial fibrillation; E11.51 Type 2 diabetes mellitus with diabetic peripheral angiopathy without gangrene; E78.5 Hyperlipidemia, unspecified; K56.41 Fecal impaction; G25.81 Restless legs syndrome; E03.9 Hypothyroidism, unspecified; R31.0 Gross hematuria; F51.04 Psychophysiologic insomnia; I89.0 Lymphedema, not elsewhere classified; Z89.512 Acquired absence of left leg below knee; Z11.52 Encounter for screening for COVID-19; H91.93 Unspecified hearing loss, bilateral; Z79.4 Long term (current) use of insulin; Z79.01 Long term (current) use of anticoagulants; Z79.51 Long term (current) use of inhaled steroids; Z86.73 Personal history of transient ischemic attack (TIA), and cerebral infarction without residual deficits; Z95.1 Presence of aortocoronary bypass graft; Z96.0 Presence of urogenital implants; Z87.440 Personal history of urinary (tract) infections
CPT/HCPCS: 0223U; 36415; 36558; 70450; 71045; 74018; 74177; 74470; 77001; 80053; 81001; 82947; 82948; 83605; 84132; 84443; 85025; 85610; 85730; 86704; 86705; 86706; 86707; 87040; 87086; 87186; 87340; 87350; 87400; 87420; 90962; 93005; 93971; 96372; 99252; 99285; C1769; C1892; J0690; J1644; J1815; J1956; J2003; J2185; J2250; J2543; J7030; J7040; J7050; J7799; Q9967

== ENCOUNTER 2024-05-08 23:02 | Emergency (ER) | payer MEDICARE ==
[~2024-05-08] VITALS: Ht 170.2 cm; Wt 95.3 kg
[~2024-05-08 23:02] MED LIST changes: +NITROFURANTOIN100 MG PO; +RENA-VITE RX T1 EACH PO
[2024-05-08 23:17] VITALS: RESP 18; TEMP 98.8
[2024-05-08 23:55] LABS: CLARITY,URINE TURBID (CLEAR); COLOR,URINE YELLOW (YELLOW)
[2024-05-08 23:59] LABS: GLUCOSE, URINE 500 (NEGATIVE); KETONES,URINE NEGATIVE (NEGATIVE); LEUKOCYTE ESTERASE ,URINE LARGE (NEGATIVE); NITRITE,URINE NEGATIVE (NEGATIVE); PH,URINE 6.5 (5 - 7); PROTEIN,URINE DIPSTICK >=300 (NEGATIVE)
[2024-05-09] LABS: BILIRUBIN,URINE NEGATIVE (NEGATIVE); RBC,URINE >50 /HPF (0-5); URINE UROBILINOGEN 0.2 mg/dL (0.2 - 1); WBC,URINE (MAN) >50 /HPF (0-5)
[2024-05-09 00:01] LABS: BACTERIA,URINE MANY /HPF; EPITHELIAL CELLS,URINE MODERATE /LPF; TRANSITIONAL EPI CELLS,URINE FEW
[2024-05-09] MEDS ORDERED: CEFDINIR300 MG PO (00:18)
[2024-05-09] MEDS: CEFDINIR 300 MG CAP PO ONE (00:34)
[2024-05-09 01:15] VITALS: PULSE 81
[2024-05-09 01:28] VITALS: BP 165/79; O2SAT 94
== END 2024-05-09 01:30 | disposition home or self-care (01) ==
LOC: ER 23:07
DX: Z46.6 Encounter for fitting and adjustment of urinary device (principal); N39.0 Urinary tract infection, site not specified; I12.0 Hypertensive chronic kidney disease with stage 5 chronic kidney disease or end stage renal disease; E11.22 Type 2 diabetes mellitus with diabetic chronic kidney disease; N18.6 End stage renal disease; Z99.2 Dependence on renal dialysis; D64.9 Anemia, unspecified; F32.A Depression, unspecified; E78.5 Hyperlipidemia, unspecified; E03.9 Hypothyroidism, unspecified; I25.10 Atherosclerotic heart disease of native coronary artery without angina pectoris; J44.9 Chronic obstructive pulmonary disease, unspecified; F03.90 Unspecified dementia, unspecified severity, without behavioral disturbance, psychotic disturbance, mood disturbance, and anxiety; N31.9 Neuromuscular dysfunction of bladder, unspecified; I48.91 Unspecified atrial fibrillation; Z89.612 Acquired absence of left leg above knee; Z95.1 Presence of aortocoronary bypass graft
CPT/HCPCS: 81001; 87086; 87186; 99283

== ENCOUNTER 2024-06-11 14:28 | Inpatient (IN) | payer MEDICARE ==
[~2024-06-11] VITALS: Ht 170.2 cm; Wt 86.2 kg
[2024-06-11] VITALS (24 sets, daily range): BP systolic 63–129; BP diastolic 38–83; PULSE 77–103; RESP 18–22; TEMP 97.1–98.6; O2SAT 100
[2024-06-11 14:54] LABS: BASOPHILS % 0.1 % (0.0-1.0); HEMOGLOBIN 10.3 g/dL (12.0-16.0); LYMPHOCYTES # (AUTO) 0.4 (1.0-3.2); LYMPHOCYTES % 4.4 % (18.0-39.1); MEAN CORPUSCULAR HEMOGLOBIN 31.9 pg (28-32); MEAN CORPUSCULAR HGB CONC 32.2 g/dL (31-35); MEAN CORPUSCULAR VOLUME 99.1 fL (81-99); MONOCYTES # (AUTO) 0.3 (0.2-0.8); MONOCYTES % 4.1 % (4.4-11.3); NEUTROPHILS # (AUTO) 7.4 (2.1-6.9); NEUTROPHILS % 89.9 % (38.7-80.0); PLATELET COUNT 219 x10e3/uL (140-360); RED BLOOD COUNT 3.23 x10e6/uL (3.6-5.1); RED CELL DISTRIBUTION WIDTH 12.4 % (11.7-14.4); WHITE BLOOD COUNT 8.26 x10e3/uL (4.8-10.8)
[2024-06-11] MEDS ORDERED: PROPOFOL IV EMULSION 10MG/ML 100 ML ONE (15:06)
[2024-06-11 15:12] LABS: INR 1.44; PROTHROMBIN TIME 18.3 seconds (11.9-14.5)
[2024-06-11 15:13] LABS: PARTIAL THROMBOPLASTIN TIME 84.5 seconds (23.8-35.5)
[2024-06-11] MEDS: SODIUM CHLORIDE 0.9% 500ML 500 ML IV ONE (15:18)
[2024-06-11 15:29] LABS: ALANINE AMINOTRANSFERASE 22 IU/L (0-55); ALBUMIN/GLOBULIN RATIO 0.9 (0.8-2.0); ALKALINE PHOSPHATASE 54 IU/L (40-150); ANION GAP 37.4 mmol/L (8-16); BILIRUBIN,TOTAL 0.5 mg/dL (0.2-1.2); CARBON DIOXIDE 10 mmol/L (22-29); CHLORIDE 93 mmol/L (98-107); CREATININE, SERUM 11.61 mg/dL (0.57-1.11); EST GLOMERULAR FILTRATION RATE 3 ML/MIN (>=60); SODIUM 135 mmol/L (136-145); TOTAL PROTEIN 6.4 g/dL (6.5-8.1)
[2024-06-11] MEDS ORDERED: ROCURONIUM BROMIDE 10 MG/ML 5ML VIAL IV ONE (15:30)
[2024-06-11] MEDS ORDERED: SODIUM CHLORIDE 0.9% 1000ML 2,720 ML IV SCH (15:30)
[2024-06-11 15:34] LABS: BLOOD UREA NITROGEN 157 mg/dL (7-26); POTASSIUM 5.4 mmol/L (3.5-5.1)
[2024-06-11 15:37] LABS: GLUCOSE 630 mg/dL (74-118)
[2024-06-11] MEDS: ETOMIDATE 2 MG/ML 10 ML INJ IV STA ×2 (15:55→15:58)
[2024-06-11] MEDS: ROCURONIUM BROMIDE 10 MG/ML 5ML VIAL IV ONE (15:56)
[2024-06-11] MEDS: PROPOFOL IV EMULSION 10MG/ML 100 ML IV PRN (15:57)
[2024-06-11] MEDS ORDERED: ONDANSETRON HCL INJ 2MG/ML 2ML 2 MG/ML VIAL IV PRN (16:45)
[2024-06-11] MEDS: SODIUM CHLORIDE 0.9% 1000ML 1,000 ML IV ONE (16:45)
[2024-06-11] MEDS: CEFEPIME 2 GM in SODIUM CHLORIDE 0.9% 100 ML IV ONE (16:45)
[2024-06-11] MEDS ORDERED: SODIUM CHLORIDE 0.9% 1000ML 1,000 ML IV SCH (16:45)
[2024-06-11] MEDS ORDERED: ETOMIDATE 2 MG/ML 10 ML INJ IV ONE (16:49)
[2024-06-11 16:55] LABS: ABG PH 7.17 (7.35-7.45)
[2024-06-11 16:56] LABS: ABG HCO3 12 mmol/L (22-26); ABG PCO2 34 mmHg (35-45); ABG PO2 177 mmHg (80-105); ABG TCO2 13
[2024-06-11] MEDS ORDERED: VANCOMYCIN 1.25GM/250 ML (PEG) 250 ML IV SCH (17:00)
[2024-06-11] MEDS: MUPIROCIN 2% OINT 22 GM TUBE TOP SCH (17:00)
[2024-06-11] MEDS ORDERED: DEXTROSE 50% SYRINGE 50 ML IV PRN (17:15)
[2024-06-11] MEDS ORDERED: ACETAMINOPHEN 325 MG TAB PO PRN (17:30)
[2024-06-11] MEDS: INSULIN REGULAR, HUMAN 3ML VL 100 UNIT in SODIUM CHLORIDE 0.9% 100 ML IV PRN (18:26)
[2024-06-11] MEDS: VANCOMYCIN 1.25GM/250 ML (PEG) 250 ML IV ONE (18:31)
[2024-06-11] MEDS: SODIUM BICARBONATE 8.4% INJ 50 ML SYR IV STA (18:35)
[2024-06-11] MEDS: ATORVASTATIN 10 MG TAB PO SCH (20:05)
[2024-06-11] MEDS: SODIUM BICARBONATE 8.4% SYRING 150 ML in STERILE WATER IV SOLN 1,000 ML IV SCH (20:34)
[2024-06-11] MEDS: SODIUM CHLORIDE 0.9% 1000ML 1,000 ML IV SCH (20:50)
[2024-06-11] MEDS: HEPARIN SOD (PORCINE) 1000 UNIT/ML SDV IV ONE (20:50)
[2024-06-11] MEDS: ALBUMIN 25% 12.5GM 0.25 GM/ML BTL IV PRN (20:51)
[2024-06-11] MEDS ORDERED: VASOPRESSIN 60 UNIT in DEXTROSE 5% 50ML 50 ML IV SCH (22:30)
[2024-06-11] MEDS: VASOPRESSIN IV SCH (23:18)
[2024-06-11] MEDS: SODIUM CHLORIDE 0.9% IV SCH (23:18)
[2024-06-11 23:19] LABS: ABG PH 7.47 (7.35-7.45)
[2024-06-11 23:20] LABS: ABG HCO3 19 mmol/L (22-26); ABG PCO2 26 mmHg (35-45); ABG PO2 181 mmHg (80-105); ABG TCO2 20
[2024-06-12] VITALS (84 sets, daily range): BP systolic 75–178; BP diastolic 45–105; PULSE 49–109; RESP 0–33; TEMP 97.6–98.7; O2SAT 94–100
[2024-06-12 06:40] LABS: BASOPHILS % 0.1 % (0.0-1.0); HEMATOCRIT 29.4 % (34.2-44.1); HEMOGLOBIN 10.1 g/dL (12.0-16.0); LYMPHOCYTES # (AUTO) 1.5 (1.0-3.2); LYMPHOCYTES % 12.8 % (18.0-39.1); MEAN CORPUSCULAR HEMOGLOBIN 32.5 pg (28-32); MEAN CORPUSCULAR HGB CONC 34.4 g/dL (31-35); MEAN CORPUSCULAR VOLUME 94.5 fL (81-99); MONOCYTES # (AUTO) 0.7 (0.2-0.8); MONOCYTES % 5.8 % (4.4-11.3); NEUTROPHILS # (AUTO) 9.3 (2.1-6.9); NEUTROPHILS % 80.4 % (38.7-80.0); PLATELET COUNT 163 x10e3/uL (140-360); RED BLOOD COUNT 3.11 x10e6/uL (3.6-5.1); RED CELL DISTRIBUTION WIDTH 12.6 % (11.7-14.4); WHITE BLOOD COUNT 11.58 x10e3/uL (4.8-10.8)
[2024-06-12 07:14] LABS: ALBUMIN 2.9 g/dL (3.5-5.0); BILIRUBIN,TOTAL 0.5 mg/dL (0.2-1.2); CALCIUM 8.6 mg/dL (8.4-10.2); CREATININE, SERUM 7.96 mg/dL (0.57-1.11); TOTAL PROTEIN 5.8 g/dL (6.5-8.1)
[2024-06-12] MEDS: DOCUSATE SODIUM 100 MG CAP PO SCH (07:58)
[2024-06-12] MEDS ORDERED: MANNITOL 25% 12.5GM/50 ML VIAL IV PRN (08:30)
[2024-06-12] MEDS ORDERED: ALBUMIN 25% 12.5GM 0.25 GM/ML BTL IV PRN (08:30)
[2024-06-12] MEDS ORDERED: HEPARIN SOD (PORCINE) 1000 UNIT/ML SDV IV PRN ×2 (08:30→09:45)
[2024-06-12] MEDS ORDERED: SODIUM CHLORIDE 0.9% 1000ML 2,000 ML IV PRN (08:30)
[2024-06-12] MEDS ORDERED: PANTOPRAZOLE SOD 40 MG TABEC PO SCH (09:00)
[2024-06-12] MEDS: APIXABAN 2.5 MG TABLET PO SCH (09:29)
[2024-06-12] MEDS: LIOTHYRONINE SODIUM 5 MCG TAB PO SCH (09:29)
[2024-06-12] MEDS ORDERED: ALTEPLASE RECOMBINANT 2 MG/2 ML VIAL IV PRN (09:45)
[2024-06-12] MEDS ORDERED: WATER STERILE 10 ML VIAL IV PRN (09:45)
[2024-06-12] MEDS ORDERED: BISACODYL 10 MG SUPP PR PRN (13:30)
[2024-06-12] MEDS ORDERED: POLYETHYLENE GLYCOL 3350 17 GM PACK PO PRN (13:30)
[2024-06-12] MEDS: Vancomycin IV 500 MG in SODIUM CHLORIDE 0.9% 100 ML IV SCH (14:11)
[2024-06-12 16:29] LABS: ABG HCO3 21 mmol/L (22-26); ABG PCO2 29 mmHg (35-45); ABG PH 7.47 (7.35-7.45); ABG PO2 207 mmHg (80-105); ABG TCO2 22
[2024-06-12] MEDS: SODIUM CHLORIDE 0.9% IV SCH (22:46)
[2024-06-12] MEDS: VASOPRESSIN IV SCH (22:46)
[2024-06-13] VITALS (80 sets, daily range): BP systolic 89–190; BP diastolic 57–114; PULSE 46–118; RESP 8–36; TEMP 97.7–98.6; O2SAT 98–100
[2024-06-13 07:07] LABS: ABG HCO3 19 mmol/L (22-26); ABG PCO2 26 mmHg (35-45); ABG PH 7.47 (7.35-7.45); ABG PO2 181 mmHg (80-105); ABG TCO2 20
[2024-06-13 07:07] LABS: ABG HCO3 12 mmol/L (22-26); ABG PCO2 34 mmHg (35-45); ABG PH 7.17 (7.35-7.45); ABG PO2 177 mmHg (80-105); ABG TCO2 13
[2024-06-13 07:07] LABS: ABG HCO3 21 mmol/L (22-26); ABG PCO2 29 mmHg (35-45); ABG PH 7.47 (7.35-7.45); ABG PO2 207 mmHg (80-105); ABG TCO2 22
[2024-06-13 07:07] LABS: ABG HCO3 27 mmol/L (22-26); ABG PCO2 70 mmHg (35-45); ABG PH 7.21 (7.35-7.45); ABG PO2 26 mmHg (80-105); ABG TCO2 30
[2024-06-13 07:08] LABS: BASOPHILS % 0.2 % (0.0-1.0); HEMATOCRIT 33.6 % (34.2-44.1); LYMPHOCYTES # (AUTO) 1.2 (1.0-3.2); LYMPHOCYTES % 6.4 % (18.0-39.1); MEAN CORPUSCULAR HEMOGLOBIN 31.8 pg (28-32); MEAN CORPUSCULAR HGB CONC 32.7 g/dL (31-35); MEAN CORPUSCULAR VOLUME 97.1 fL (81-99); MONOCYTES % 5.1 % (4.4-11.3); NEUTROPHILS # (AUTO) 16.3 (2.1-6.9); NEUTROPHILS % 87.3 % (38.7-80.0); PLATELET COUNT 195 x10e3/uL (140-360); RED BLOOD COUNT 3.46 x10e6/uL (3.6-5.1); RED CELL DISTRIBUTION WIDTH 12.8 % (11.7-14.4); WHITE BLOOD COUNT 18.66 x10e3/uL (4.8-10.8)
[2024-06-13 07:51] LABS: ALBUMIN 2.8 g/dL (3.5-5.0); ALBUMIN/GLOBULIN RATIO 0.9 (0.8-2.0); ANION GAP 22.2 mmol/L (8-16); BILIRUBIN,TOTAL 0.4 mg/dL (0.2-1.2); CREATININE, SERUM 5.81 mg/dL (0.57-1.11); TOTAL PROTEIN 5.9 g/dL (6.5-8.1)
[2024-06-13 07:54] LABS: POTASSIUM 3.2 mmol/L (3.5-5.1)
[2024-06-13 08:17] LABS: FREE T4 (FREE THYROXINE) 0.54 ng/dL (0.8-1.8); THYROID STIMULATING HORMONE 2.676 uIU/mL (0.350-4.940)
[2024-06-13 08:27] LABS: FOLATE 17.5 ng/mL (7.0-15.4)
[2024-06-13] MEDS ORDERED: SENNOSIDES 8.6 MG TAB PO SCH (09:00)
[2024-06-13] MEDS ORDERED: DOCUSATE SODIUM 100 MG CAP PO SCH (09:00)
[2024-06-13 09:12] LABS: HEPATITIS B SURFACE AG (P) Negative (Negative)
[2024-06-13 09:33] LABS: FERRITIN 10653.34 ng/mL (4.63-204.00)
[2024-06-13 16:01] LABS: ABG HCO3 27 mmol/L (22-26); ABG PCO2 37 mmHg (35-45); ABG PH 7.47 (7.35-7.45); ABG PO2 134 mmHg (80-105); ABG TCO2 28
[2024-06-13] MEDS: LABETALOL HCL 5 MG/ML 20ML VIAL IV PRN (16:53)
[2024-06-14] VITALS (31 sets, daily range): BP systolic 96–163; BP diastolic 61–105; PULSE 97–120; RESP 19–39; TEMP 98.2–99.3; O2SAT 96–100
[2024-06-14 07:13] LABS: BASOPHILS % 0.1 % (0.0-1.0); HEMATOCRIT 34.1 % (34.2-44.1); HEMOGLOBIN 11.1 g/dL (12.0-16.0); LYMPHOCYTES # (AUTO) 1.4 (1.0-3.2); LYMPHOCYTES % 8.1 % (18.0-39.1); MEAN CORPUSCULAR HEMOGLOBIN 32.2 pg (28-32); MEAN CORPUSCULAR HGB CONC 32.6 g/dL (31-35); MEAN CORPUSCULAR VOLUME 98.8 fL (81-99); MONOCYTES % 5.7 % (4.4-11.3); NEUTROPHILS # (AUTO) 14.5 (2.1-6.9); PLATELET COUNT 211 x10e3/uL (140-360); RED BLOOD COUNT 3.45 x10e6/uL (3.6-5.1); RED CELL DISTRIBUTION WIDTH 12.9 % (11.7-14.4); WHITE BLOOD COUNT 17.08 x10e3/uL (4.8-10.8)
[2024-06-14 07:44] LABS: ALBUMIN 3.1 g/dL (3.5-5.0); ANION GAP 20.7 mmol/L (8-16); BILIRUBIN,TOTAL 0.6 mg/dL (0.2-1.2); CREATININE, SERUM 4.05 mg/dL (0.57-1.11); POTASSIUM 3.7 mmol/L (3.5-5.1); TOTAL PROTEIN 6.1 g/dL (6.5-8.1)
[2024-06-14] MEDS ORDERED: DEXTROSE 50% SYRINGE 50 ML IV PRN (08:00)
[2024-06-14] MEDS ORDERED: HEPARIN SOD (PORCINE) 1000 UNIT/ML SDV IV PRN (09:45)
[2024-06-14] MEDS: INSULIN REGULAR, HUMAN 100 UNIT/1 ML SQ SCH (12:24)
[2024-06-14 14:33] LABS: ABG HCO3 27 mmol/L (22-26); ABG PCO2 37 mmHg (35-45); ABG PH 7.47 (7.35-7.45); ABG PO2 134 mmHg (80-105); ABG TCO2 28
[2024-06-15] VITALS (14 sets, daily range): BP systolic 104–158; BP diastolic 55–96; PULSE 99–116; RESP 18–40; TEMP 98–102.8; O2SAT 96–100
[2024-06-15] MEDS: INSULIN REGULAR, HUMAN 100 UNIT/1 ML SQ SCH (00:41)
[2024-06-15 06:57] LABS: BASOPHILS % 0.2 % (0.0-1.0); EOSINOPHILS % 0.1 % (0.0-6.0); HEMATOCRIT 35.6 % (34.2-44.1); HEMOGLOBIN 11.1 g/dL (12.0-16.0); LYMPHOCYTES # (AUTO) 2.3 (1.0-3.2); LYMPHOCYTES % 12.8 % (18.0-39.1); MEAN CORPUSCULAR HEMOGLOBIN 32.4 pg (28-32); MEAN CORPUSCULAR HGB CONC 31.2 g/dL (31-35); MEAN CORPUSCULAR VOLUME 103.8 fL (81-99); MONOCYTES # (AUTO) 1.4 (0.2-0.8); MONOCYTES % 7.9 % (4.4-11.3); NEUTROPHILS # (AUTO) 13.9 (2.1-6.9); NEUTROPHILS % 77.5 % (38.7-80.0); PLATELET COUNT 149 x10e3/uL (140-360); RED BLOOD COUNT 3.43 x10e6/uL (3.6-5.1); WHITE BLOOD COUNT 17.99 x10e3/uL (4.8-10.8)
[2024-06-15 07:28] LABS: ALBUMIN 3.3 g/dL (3.5-5.0); BILIRUBIN,TOTAL 0.7 mg/dL (0.2-1.2); CALCIUM 9.5 mg/dL (8.4-10.2); CREATININE, SERUM 3.8 mg/dL (0.57-1.11); TOTAL PROTEIN 6.7 g/dL (6.5-8.1)
[2024-06-15] MEDS: ACETAMINOPHEN 1000 MG/100 ML IV ONE (08:26)
[2024-06-15] MEDS ORDERED: INSULIN REGULAR, HUMAN 3ML VL 100 UNIT in SODIUM CHLORIDE 0.9% 99 ML IV SCH (08:30)
[2024-06-15] MEDS ORDERED: DEXTROSE 50% SYRINGE 50 ML IV PRN ×2 (08:30→10:45)
[2024-06-15] MEDS: METOPROLOL SUCCINATE 25 MG TAB XL PO SCH (09:31)
[2024-06-15] MEDS ORDERED: INSULIN REGULAR, HUMAN 100 UNIT/1 ML SQ SCH (11:30)
[2024-06-19 06:55] LABS: ABG HCO3 22 mmol/L (22-26); ABG PCO2 36 mmHg (35-45); ABG PH 7.38 (7.35-7.45); ABG PO2 34 mmHg (80-105); ABG TCO2 23
== END 2024-06-15 12:58 | disposition hospice, inpatient (51) | DRG 314 ==
LOC: ER 14:32 → ERHOLD 16:37 → ICU 18:15 → MED/SURG3 06-14 15:17 → ICU 06-15 07:13
PROVIDERS: ADMIT Internal Medicine; ATTEND Internal Medicine
PROC: 5A1945Z Respiratory Ventilation, 24-96 Consecutive Hours (ICD-10-PCS; principal; 2024-06-11)
PROC: 3E0333Z Introduction of Anti-inflammatory into Peripheral Vein, Percutaneous Approach (ICD-10-PCS; 2024-06-11)
PROC: 06HY33Z Insertion of Infusion Device into Lower Vein, Percutaneous Approach (ICD-10-PCS; 2024-06-11)
PROC: 3E033XZ Introduction of Vasopressor into Peripheral Vein, Percutaneous Approach (ICD-10-PCS; 2024-06-11)
PROC: 0T9B30Z Drainage of Bladder with Drainage Device, Percutaneous Approach (ICD-10-PCS; 2024-06-11)
PROC: 0BH17EZ Insertion of Endotracheal Airway into Trachea, Via Natural or Artificial Opening (ICD-10-PCS; 2024-06-11)
PROC: 4A133R1 Monitoring of Arterial Saturation, Peripheral, Percutaneous Approach (ICD-10-PCS; 2024-06-12)
PROC: 5A09357 Assistance with Respiratory Ventilation, Less than 24 Consecutive Hours, Continuous Positive Airway Pressure (ICD-10-PCS; 2024-06-15)
DX: T82.7XXA Infection and inflammatory reaction due to other cardiac and vascular devices, implants and grafts, initial encounter (principal); A41.2 Sepsis due to unspecified staphylococcus; R65.21 Severe sepsis with septic shock; E11.11 Type 2 diabetes mellitus with ketoacidosis with coma; J96.01 Acute respiratory failure with hypoxia; I50.43 Acute on chronic combined systolic (congestive) and diastolic (congestive) heart failure; N18.6 End stage renal disease; I13.2 Hypertensive heart and chronic kidney disease with heart failure and with stage 5 chronic kidney disease, or end stage renal disease; N30.01 Acute cystitis with hematuria; I48.20 Chronic atrial fibrillation, unspecified; E11.22 Type 2 diabetes mellitus with diabetic chronic kidney disease; D63.1 Anemia in chronic kidney disease; Z66 Do not resuscitate; Z51.5 Encounter for palliative care; Z99.2 Dependence on renal dialysis; E78.5 Hyperlipidemia, unspecified; E87.70 Fluid overload, unspecified; E03.9 Hypothyroidism, unspecified; E11.51 Type 2 diabetes mellitus with diabetic peripheral angiopathy without gangrene; I25.10 Atherosclerotic heart disease of native coronary artery without angina pectoris; F03.90 Unspecified dementia, unspecified severity, without behavioral disturbance, psychotic disturbance, mood disturbance, and anxiety; R74.8 Abnormal levels of other serum enzymes; F32.A Depression, unspecified; Z79.01 Long term (current) use of anticoagulants; Z79.51 Long term (current) use of inhaled steroids; Z79.890 Hormone replacement therapy; Z79.4 Long term (current) use of insulin; Z95.1 Presence of aortocoronary bypass graft; Z89.512 Acquired absence of left leg below knee; Z88.4 Allergy status to anesthetic agent
CPT/HCPCS: 36415; 36600; 71045; 74018; 76705; 80053; 82607; 82728; 82746; 82805; 82948; 83540; 83605; 83880; 84439; 84443; 84466; 85025; 85610; 85730; 86706; 87040; 87071; 87186; 87205; 87340; 93005; 93306; 94002; 94003; 94640; 94660; 94799; 96372; 99252; 99284; J0692; J0696; J1644; J2150; J2185; J2470; J2997; J3370; J7030; J7040; J7050

== ENCOUNTER 2024-06-15 12:59 | Inpatient (IN) | payer OTHER ==
[~2024-06-15] VITALS: Ht 167.6 cm; Wt 86.2 kg
[2024-06-15] VITALS (14 sets, daily range): BP systolic 94–132; BP diastolic 46–96; PULSE 99–131; RESP 20–39; TEMP 98.9–101.2; O2SAT 98–100
[2024-06-15] MEDS ORDERED: BISACODYL 10 MG SUPP PR PRN (14:00)
[2024-06-15] MEDS ORDERED: ONDANSETRON HCL INJ 2MG/ML 2ML 2 MG/ML VIAL IV PRN (14:00)
[2024-06-15] MEDS ORDERED: GLYCOPYRROLATE INJ 0.2 MG/ML VIAL IV PRN (14:00)
[2024-06-15] MEDS ORDERED: Morphine 2mg Syringe 2 MG/ML SYR IV ONE (16:45)
[2024-06-15] MEDS: Morphine 10mg syringe 10 MG/ML INJ IV PRN (22:42)
[2024-06-15] MEDS: ACETAMINOPHEN 325 MG SUPP PR PRN (22:53)
[2024-06-16] VITALS (8 sets, daily range): BP systolic 73–92; BP diastolic 32–64; PULSE 79–123; RESP 23–34; TEMP 99–100.7; O2SAT 99–100
[2024-06-16] MEDS: LORAZEPAM INJ 2 MG/ML VIAL IV PRN (07:46)
[2024-06-16] MEDS ORDERED: ATROPINE SULFATE 1% OPTH DROPS 15 ML BTL SL PRN (09:15)
[2024-06-16] MEDS: SCOPOLAMINE 1 MG PATCH TOP SCH (10:00)
== END 2024-06-16 13:25 | disposition expired | DRG 951 ==
LOC: ICU 12:59
PROVIDERS: ADMIT Family Medicine Adult Medicine; ATTEND Family Medicine Adult Medicine
DX: Z51.5 Encounter for palliative care (principal); J96.01 Acute respiratory failure with hypoxia; I13.2 Hypertensive heart and chronic kidney disease with heart failure and with stage 5 chronic kidney disease, or end stage renal disease; E11.22 Type 2 diabetes mellitus with diabetic chronic kidney disease; N18.6 End stage renal disease; I50.23 Acute on chronic systolic (congestive) heart failure; T82.7XXA Infection and inflammatory reaction due to other cardiac and vascular devices, implants and grafts, initial encounter; Z66 Do not resuscitate; E11.51 Type 2 diabetes mellitus with diabetic peripheral angiopathy without gangrene; Z99.2 Dependence on renal dialysis; I48.0 Paroxysmal atrial fibrillation; I25.10 Atherosclerotic heart disease of native coronary artery without angina pectoris; Z95.1 Presence of aortocoronary bypass graft; Z89.512 Acquired absence of left leg below knee
CPT/HCPCS: 94799; J2060; J2270